=== PATIENT | male | born 1970 | race Caucasian/White ===

== ENCOUNTER 2018-04-04 12:05 | Inpatient (IN) | payer OTHER ==
--- NOTE | 2018-04-04 12:16 | PDOC ---
History of Present Illness - General Chief Complaint: Shortness of Breath Stated Complaint: SOB Time Seen by Provider: 04/04/18 12:15 - History of Present Illness Initial Comments: 04/04/18 13:48 48 yo morbidly obese Male w a hx of HTN on amlodipine, childhood asthma, and gout is here with severe SOB and difficulty breathing. His SOB began last night and has progressively worsened to the point where he can't lie flat. He has been experiencing SOB for the past week on and off but it was never as bad as it was last night or today. He reports poor medication compliance and he is not sure what meds he takes for hypertension. He has a 6 week hx of on and off vague R sided lower back/flank pain. He is not currently experiencing the pain. He denies having any current chest pain, back pain, headache, visionary changes , floaters, abdominal pain, or flank pain. He denies any recent fevers, chills, or infections. He denies dysuria, frequency , urgency, nausea, vomiting, diaphoresis, constipation, or diarrhea. Patient denies having a cough, recent travel, recent surgeries, or a hx of cancer. 04/04/18 14:03 04/04/18 14:11 04/04/18 15:33 Past History - Past Medical History Allergies/Adverse Reactions: Allergies Allergy/AdvReac Type Severity Reaction Status Date / Time No Known Allergies Allergy Verified 04/04/18 12:10 COPD: No HTN: Yes - Suicide/Smoking/Psychosocial Hx Smoking History: Never smoked Review of Systems - Review of Systems Comments:: 04/04/18 13:53 CONSTITUTIONAL: Absent: fever, chills, diaphoresis, generalized weakness, malaise, loss of appetite HEENT: Present: throat pain Absent: rhinorrhea, nasal congestion, throat swelling, difficulty swallowing, mouth swelling, ear pain, eye pain, visual Changes CARDIOVASCULAR: Absent: chest pain, syncope, palpitations, irregular heart rate, lightheadedness , peripheral edema RESPIRATORY: Positive: Shortness of breath, orthopnea Absent: cough, dyspnea with exertion, wheezing, stridor, hemoptysis GASTROINTESTINAL: Absent: abdominal pain, abdominal distension, nausea, vomiting, diarrhea, constipation, melena, hematochezia GENITOURINARY: Positive: Flank pain Absent: dysuria, frequency, urgency, hesitancy, hematuria, genital pain MUSCULOSKELETAL: Absent: myalgia, arthralgia, joint swelling SKIN: Absent: rash, itching, pallor HEMATOLOGIC/IMMUNOLOGIC: Absent: easy bleeding, easy bruising, lymphadenopathy, frequent infections ENDOCRINE: Absent: unexplained weight gain, unexplained weight loss, heat intolerance, cold intolerance NEUROLOGIC: Absent: headache, focal weakness or paresthesias, dizziness, unsteady gait, seizure, mental status changes, bladder or bowel incontinence PSYCHIATRIC: Absent: anxiety, depression, suicidal or homicidal ideation, hallucinations. 04/04/18 14:08 04/04/18 14:12 *Physical Exam - Vital Signs Last Vital Signs Temp Pulse Resp BP Pulse Ox 98.4 F 84 20 205/129 94 L 04/04/18 12:06 04/04/18 12:06 04/04/18 12:06 04/04/18 12:06 04/04/18 12:06 - Physical Exam Comments: 04/04/18 14:12 GENERAL: The patient is in moderate distress. Well developed, well nourished. Awake and alert. HEENT: Posterior oropharynx is mildly erythematous. Normocephalic, atraumatic. PERRLA, EOMI. No conjunctival pallor. Sclera are non- icteric. Moist mucous membranes. NECK: Supple. Full ROM. No JVD. No thyromegaly. No lymphadenopathy. CARDIOVASCULAR: Regular rate and rhythm. No murmurs, rubs, or gallops. Distal pulses are 2+ and symmetric. PULMONARY: Clear evidence of respiratory distress. Lungs clear to auscultation bilaterally. No wheezing, rales or rhonchi. He is not using accessory muscles. ABDOMINAL: Soft. Non-tender. Non-distended. No rebound or guarding. No organomegaly. Normoactive bowel sounds. MUSCULOSKELETAL Normal range of motion at all joints. No bony deformities or tenderness. No CVA tenderness. EXTREMITIES: No cyanosis. No clubbing. No edema. No calf tenderness. SKIN: Warm and dry. Normal capillary refill. No rashes. No jaundice. NEUROLOGICAL: Alert, awake, appropriate. Cranial nerves 2-12 intact. No deficits to light touch in face, upper extremities and lower extremities. No motor deficits in the in face, upper extremities and lower extremities. Normal speech. Gait is normal without ataxia. PSYCHIATRIC: Cooperative. Good eye contact. Appropriate mood and affect. ED Treatment Course - LABORATORY CBC & Chemistry Diagram: 04/04/18 13:44 04/04/18 14:23 Medical Decision Making - Medical Decision Making 04/04/18 14:18 48 yo M w a hx of HTN on amlodipine and another unspecified med, childhood asthma, and gout is here with severe SOB and difficulty breathing, elevated blood pressure systolic 210, diastolic 130, RR -33. Differential includes but not limited to: Hypertensive emergency/urgency, Heart failure, Dissection, PE, medication noncompliance, asthma exacerbation, ACS, CHAPO /OHS, infection. Given high blood pressure + SOB this could be an end organ failure from hypertensive emergency. Will give lebatalol to lower BP. Given remote hx of childhood asthma will give a breathing treatment. Plan: Labs, urine, CXR, Ekg, duoneb, lebatalol, continuous cardiac monitoring, oxygen, re-assess. CXR showed bilateral interstitial infiltrates which could be pulmonary edema or atypical PNA. Labs came back with a significant BNP of 8183. Given the CXR and elevated BNP this is likely Heart failure - possibly caused by uncontrolled hypertension. Patient is still in significant respiratory distress after labetalol and Duoneb. Plan is to give patient nitroglycerin and lasix to start treating his CHF. If he gets worse or desaturates will have a low threshhold to start Bi-Pap. Patient will be admitted to Tele. 04/04/18 15:36 04/04/18 15:45 04/04/18 16:11 *DC/Admit/Observation/Transfer Diagnosis at time of Disposition: CHF (congestive heart failure) - Discharge Dispostion Condition at time of disposition: Guarded Decision to Admit order: Yes - Referrals - Patient Instructions - Post Discharge Activity
--- NOTE | 2018-04-04 12:36 | PDOC ---
Attending Attestation - Resident Resident Name: Alexis Hopkins - ED Attending Attestation I have performed the following: I have examined & evaluated the patient, The case was reviewed & discussed with the resident, I agree w/resident's findings & plan, Exceptions are as noted - HPI HPI: 04/04/18 12:35 48y M hx of HTN presenting with worsening sob worse with lying down. no associated headache, back pain, cp, abd pain, fever, cough, diaphoresis, palpitations, lightheadeness. Pt notes he occasionally has symptoms like this but rseolves spontaneously and never saught medical care. Pt denies any recent VÁSQUEZ, cp on exertion. on exam pt in no distresss pt noted to be hypoxic to low 90s on RA mildly tachypneic - lungs clear to ascultation no LE edema abd sof tnontender card: no murmers, no jvd ddx: chf, pna, acs, hypertensive emergency, ?pulm htn - Physicial Exam PE: 04/08/18 09:25 see above - Medical Decision Making pts cxr is suggestive of CHF in light of htn, suspect htn emeergency will admit pt for further mangement for controlof his pulm edema and htn will give pt lasix and antihypertnsives Heart Score/ECG Review - ECG Impressions Comment:: 04/04/18 17:01 Twelve-lead EKG was performed and reviewed by me. There is normal sinus rhythm with a normal rate. rate of86 QTc interval of 473 blood Abnormal R wave progression T wave inversion in 1 and aVL
[2018-04-04] MEDS ORDERED: LABETALOL HCL 5 MG/1 ML (100MG/20 ML VIAL) IVPUSH ONE ×2 (12:46→16:10)
[2018-04-04 13:28] LABS: VENOUS PC02 35.5 mmHg (38-52); VENOUS PH 7.43 (7.32-7.42); VENOUS PO2 34.4 mmHg (28-48)
[2018-04-04] MEDS ORDERED: LABETALOL HCL 5 MG/1 ML (200MG/40ML VIAL) IVPB ONE (13:35)
[2018-04-04] MEDS ORDERED: ALBUTEROL SO4 2.5/IPRATROPIUM 0.5 INH SOL 3 ML VIAL.NEB. NEB ONE ×2 (14:02→14:31)
[2018-04-04 14:05] LABS: EOS % 1.3 % (0-4.5); HEMATOCRIT 44.5 % (35.4-49); HEMOGLOBIN 14.6 GM/dL (11.7-16.9); LYMPH % 8.8 % (8-40); MCH 30.3 pg (25.7-33.7); MCHC 32.9 g/dl (32.0-35.9); MEAN CELL VOLUME 92.2 fl (80-96); MEAN PLT VOLUME 10.8 fl (7.5-11.1); MONO % 3.9 % (3.8-10.2); PLATELET COUNT 161 K/MM3 (134-434); RBC 4.83 M/mm3 (4.00-5.60); RDW 16.7 % (11.9-15.9); WHITE BLOOD COUNT 10.1 K/mm3 (4.0-10.0)
[2018-04-04 14:20] LABS: URINE APPEARANCE CLEAR; URINE BILIRUBIN NEGATIVE (<2.0 mg/dL); URINE COLOR YELLOW; URINE GLUCOSE (UA) NEGATIVE (NEGATIVE); URINE KETONE NEGATIVE (NEGATIVE); URINE LEUK ESTERASE NEGATIVE (NEGATIVE); URINE NITRITE NEGATIVE (NEGATIVE); URINE UROBILINOGEN NEGATIVE mg/dL (0.2-1.0)
[2018-04-04 14:29] LABS: URINE PROTEIN 2+ (NEGATIVE)
[2018-04-04 14:42] LABS: GRANULAR CASTS 5 /lpf; URINE HYALINE CAST 28 /lpf; URINE MUCUS RARE
[2018-04-04 14:59] LABS: ALK PHOS 93 U/L (45-117); ANION GAP 9 MMOL/L (8-16); BILIRUBIN,TOTAL 3.2 mg/dL (0.2-1); BLOOD UREA NITROGEN 27 mg/dL (7-18); CALCIUM 8.8 mg/dL (8.5-10.1); CHLORIDE 108 mmol/L (98-107); CO2 20 mmol/L (21-32); CREATININE 1.1 mg/dL (0.55-1.3); GLUCOSE,RANDOM 134 mg/dL (74-106); POTASSIUM 4.1 mmol/L (3.5-5.1); SGOT/AST 21 U/L (15-37); SGPT/ALT 32 U/L (13-61); SODIUM 137 mmol/L (136-145); TOT PROT 7.2 g/dl (6.4-8.2)
[2018-04-04 15:05] LABS: N-TERMINAL BNP 8183.4 pg/ml (5-125)
[2018-04-04] MEDS ORDERED: NITROGLYCERIN SUBLINGUAL 1/150 0.4 MG TAB SL ONE (15:17)
[2018-04-04] MEDS ORDERED: NITROGLYCERIN SUBLINGUAL 1/150 0.4 MG TAB ONE (15:27)
[2018-04-04] MEDS ORDERED: FUROSEMIDE 40 MG/4 ML INJECTABLE VIAL IVPUSH ONE ×2 (15:58→16:07)
--- NOTE | 2018-04-04 16:08 | HP ---
CHIEF COMPLAINT: shorntess of breath PCP: HISTORY OF PRESENT ILLNESS: Patient is a 48 year old male with a past medical history of hypertension, ETOH abuse, gout and childhood asthma. He comes to the ED today with complaints of difficulty breathing specifically when he lays down flat. The shortness of breath started about 1 week ago and worsened, however, got worse today prompting and ED visit. He is unable to ambulate without experiencing shortness of breath, cannot lay flat. He states he is on Norvasc 10mg and takes it intermittently. He is on another blood pressure "purple" pill but does not take it anymore. he takes his blood pressure at home with an electronic monitor and it is usually high in the 190s systolic. He denies chest pain, fevers, chills, or infections. Patient denies having a cough or recent travel. Wells score 0: no malignancy, no hemoptysis, no hx of of dvt or PE, denies prolonged immobilization. His heart rate is not elevated nor has any lower ext edema. ER course was notable for: (1) hypertensive emergency (2) chest xray, congestion, cardiomegaly, possible pna (3) bnp 8000 (4) lasix 40mg in ED (5) nitro, labetolol IV, Recent Travel: PAST MEDICAL HISTORY: PAST SURGICAL HISTORY: Social History: Smoking: denies Alcohol: drank 10 beers per night, but states last drink was march 07, none since Drugs: denies Family History: Allergies No Known Allergies Allergy (Verified 04/04/18 12:10) PHYSICAL EXAMINATION Vital Signs - 24 hr 04/04/18 04/04/18 04/04/18 12:05 12:06 12:10 Temperature 98.4 F Pulse Rate 84 Pulse Rate [ Apical] Respiratory 20 Rate Blood Pressure 205/129 Blood Pressure [Right Arm] O2 Sat by Pulse 98 94 L 98 Oximetry (%) 04/04/18 04/04/18 04/04/18 13:55 14:20 16:05 Temperature 98.1 F Pulse Rate Pulse Rate [ 85 85 85 Apical] Respiratory 32 H 20 34 H Rate Blood Pressure Blood Pressure 191/135 199/144 193/133 [Right Arm] O2 Sat by Pulse 98 98 95 Oximetry (%) GENERAL: Awake, alert, and fully oriented, in no acute distress. HEAD: Normal with no signs of trauma. EYES: Pupils equal, round and reactive to light, extraocular movements intact, sclera anicteric, conjunctiva clear. No lid lag. EARS, NOSE, THROAT: Ears normal, nares patent, oropharynx clear without exudates. Moist mucous membranes. NECK: Normal range of motion, supple without lymphadenopathy, JVD, or masses. LUNGS: Breath sounds equal, clear to auscultation bilaterally, + accessory muscle use. HEART: Regular rate and rhythm, normal S1 and S2 without murmur, rub or gallop. ABDOMEN: Soft, nontender, not distended, normoactive bowel sounds, no guarding, no rebound, no masses. No hepatomegaly or splenomegaly. MUSCULOSKELETAL: Normal range of motion at all joints. No bony deformities or tenderness. No CVA tenderness. UPPER EXTREMITIES: 2+ pulses, warm, well-perfused. No cyanosis. No clubbing. No peripheral edema. LOWER EXTREMITIES: 2+ pulses, warm, well-perfused. No calf tenderness. No peripheral edema. NEUROLOGICAL: Cranial nerves II-XII intact. Normal speech. Normal gait. PSYCHIATRIC: Cooperative. Good eye contact. Appropriate mood and affect. SKIN: Warm, dry, normal turgor, no rashes or lesions noted, normal capillary refill. Laboratory Results - last 24 hr 04/04/18 04/04/18 04/04/18 13:00 13:00 13:20 WBC RBC Hgb Hct MCV MCH MCHC RDW Plt Count No Result Required. MPV Absolute Neuts (auto) Neutrophils % Lymphocytes % Monocytes % Eosinophils % Basophils % Nucleated RBC % VBG pH POC VBG pCO2 POC VBG pO2 Mixed VBG HCO3 Sodium Cancelled Potassium Cancelled Chloride Cancelled Carbon Dioxide Cancelled Anion Gap Cancelled BUN Cancelled Creatinine Cancelled Creat Clearance w eGFR Cancelled Random Glucose Cancelled Lactic Acid Calcium Cancelled Total Bilirubin Cancelled AST Cancelled ALT Cancelled Alkaline Phosphatase Cancelled Creatine Kinase Cancelled Troponin I Cancelled B-Natriuretic Peptide Cancelled Total Protein Cancelled Albumin Cancelled Urine Color Urine Appearance Urine pH Ur Specific Taylor Urine Protein Urine Glucose (UA) Urine Ketones Urine Blood Urine Nitrite Urine Bilirubin Urine Urobilinogen Ur Leukocyte Esterase Urine WBC (Auto) Urine RBC (Auto) Hyaline Casts Granular Casts Urine Mucus 04/04/18 04/04/18 04/04/18 13:20 13:31 13:44 WBC 10.1 H RBC 4.83 Hgb 14.6 Hct 44.5 MCV 92.2 MCH 30.3 MCHC 32.9 RDW 16.7 H Plt Count 161 D MPV 10.8 D Absolute Neuts (auto) 8.6 H Neutrophils % 85.0 H Lymphocytes % 8.8 Monocytes % 3.9 Eosinophils % 1.3 Basophils % 1.0 Nucleated RBC % 0 VBG pH 7.43 H POC VBG pCO2 35.5 L POC VBG pO2 34.4 Mixed VBG HCO3 23.1 Sodium Potassium Chloride Carbon Dioxide Anion Gap BUN Creatinine Creat Clearance w eGFR Random Glucose Lactic Acid 1.4 Calcium Total Bilirubin AST ALT Alkaline Phosphatase Creatine Kinase Troponin I B-Natriuretic Peptide Total Protein Albumin Urine Color Urine Appearance Urine pH Ur Specific Taylor Urine Protein Urine Glucose (UA) Urine Ketones Urine Blood Urine Nitrite Urine Bilirubin Urine Urobilinogen Ur Leukocyte Esterase Urine WBC (Auto) Urine RBC (Auto) Hyaline Casts Granular Casts Urine Mucus 04/04/18 04/04/18 04/04/18 13:51 14:00 14:23 WBC RBC Hgb Hct MCV MCH MCHC RDW Plt Count MPV Absolute Neuts (auto) Neutrophils % Lymphocytes % Monocytes % Eosinophils % Basophils % Nucleated RBC % VBG pH POC VBG pCO2 POC VBG pO2 Mixed VBG HCO3 Sodium 137 Potassium 4.1 Chloride 108 H Carbon Dioxide 20 L Anion Gap 9 BUN 27 H Creatinine 1.1 Creat Clearance w eGFR > 60 Random Glucose 134 H Lactic Acid Calcium 8.8 Total Bilirubin 3.2 H AST 21 ALT 32 Alkaline Phosphatase 93 Creatine Kinase 121 Troponin I 0.04 B-Natriuretic Peptide 8183.4 H Total Protein 7.2 Albumin 4.0 Urine Color Yellow Urine Appearance Clear Urine pH 5.0 Ur Specific Taylor 1.018 Urine Protein 2+ H Urine Glucose (UA) Negative Urine Ketones Negative Urine Blood Negative Urine Nitrite Negative Urine Bilirubin Negative Urine Urobilinogen Negative Ur Leukocyte Esterase Negative Urine WBC (Auto) 1 Urine RBC (Auto) <1 Hyaline Casts 28 Granular Casts 5 Urine Mucus Rare ASSESSMENT/PLAN: Patient is a 48 year old male with a past medical history of hypertension, ETOH abuse and childhood asthma. He comes to the ED today with complaints of difficulty breathing specifically when he lays down flat. ED course: labs: bnp 8000 meds: given nitro, labetolol IV, Wells score 0: no malignancy, no hemoptysis, no hx of of dvt or PE, denies prolonged immobilization. his heart rate is not elevated nor has any lower ext edema. ekg: EKG sinus, LVH, nonspecific T wave changes, LA enlargement echo: LV function severely reduced Hypertensive urgency: Hypertensive urgency/ Shortness of breath in the setting of uncontrolled blood pressure and BNP 8k. BP at home reported to be in the 190s systolic. Lowering his BP slowly is the goal. On 2 liters of nasal cannula for shortness of breath. Patient denies headache. denies chest pain. Will trend troponins. Monitor on tele with close monitoring of BP q4. Will order lipids, tsh and [id number] labs. Pulm: Shortness of breath. secondary to fluid overload. chest xray with pulmonary edema, possible interstitial pna. Pulm consult. Will order duonebs for relief of shortness of breath. On Lasix. on 2 liters of nasal cannula to maintain oxygen stable at 92% or greater. Psyche: ETOH abuse, denies current use muscular: Gout, not in any flare full code Visit type - Emergency Visit Emergency Visit: Yes ED Registration Date: 04/04/18 Care time: The patient presented to the Emergency Department on the above date and was hospitalized for further evaluation of their emergent condition. - New Patient This patient is new to me today: Yes Date on this admission: 04/04/18 - Critical Care Critical Care patient: No Hospitalist Screening - Colonoscopy Questionnaire Colonoscopy Questionnaire: Colonoscopy Questionnaire - Patient: 50 - 75 years old and never had a screening colonoscopy: Unknown History of colon or rectal polyps, or CA: Unknown History of IBD, Crohn's disease or UC: Unknown History of abdominal radiation therapy as a child: Unknown - Relative: 1 with colon or rectal CA, or polyps at age 60 or younger: Unknown Colon or rectal CA diagnosed at age 45 or younger: Unknown Multiple relatives with colon or rectal CA: Unknown - Outcome: Screening Result: Negative Screen
--- NOTE | 2018-04-04 16:15 | ECHO ---
Name: GENARO PATTERSON Exam:Adult Echocardiogram Study Date: 04/04/2018 03:31 PM Age: 48 yrs Reason For Study: CHF Height: 66 in Weight: 275 lb BSA: 2.3 m2 MMode/2D Measurements & Calculations IVSd: 1.1 cm Ao root diam: 2.7 cm LVIDd: 5.7 cm LA dimension: 4.6 cm LVIDs: 4.9 cm LVPWd: 1.0 cm EDV(Teich): 157.3 ml TAPSE: 1.8 cm ESV(Teich): 114.0 ml RV S Damion: 6.2 cm/sec Doppler Measurements & Calculations MV E max damion: 99.7 cm/sec Ao V2 max: 79.6 cm/sec MV A max damion: 34.1 cm/sec Ao max P.5 mmHg MV E/A: 2.9 MV dec time: 0.13 sec LV V1 max P.58 mmHg MR max damion: 275.5 cm/sec LV V1 max: 38.1 cm/sec MR max P.4 mmHg TR max damion: 190.0 cm/sec PI end-d damion: 63.0 cm/sec TR max P.4 mmHg Med Peak E' Damion: 2.5 cm/sec Med E/e': 39.8 Lat Peak E' Damion: 6.4 cm/sec Lat E/e': 15.5 Left Ventricle Left ventricular systolic function is severely reduced. Ejection Fraction = 20-25%. Right Ventricle The right ventricle is grossly normal size. The right ventricular systolic function is grossly normal . Atria The left atrium is moderately dilated. Mitral Valve The mitral valve is grossly normal. There is no mitral valve stenosis. There is mild mitral regurgita tion. Tricuspid Valve The tricuspid valve is not well visualized, but is grossly normal. There is mild tricuspid regurgitat ion. Aortic Valve There is mild aortic sclerosis.;. No hemodynamically significant valvular aortic stenosis. No aortic regurgitation is present. Pulmonic Valve The pulmonic valve is not well seen, but is grossly normal. Mild pulmonic valvular regurgitation. Great Vessels The aortic root is normal size. Pericardium/Pleura Trivial pericardial effusion not hemodynamically significant. Interpretation Summary Left ventricular systolic function is severely reduced. Ejection Fraction = 20-25%. The left atrium is moderately dilated. There is mild mitral regurgitation. There is mild tricuspid regurgitation. There is mild aortic sclerosis.; Trivial pericardial effusion not hemodynamically significant MD Kvng Rubio 04/04/2018 04:15 PM
--- NOTE | 2018-04-04 16:46 | CON.CARD ---
Consult Consult Specialty:: Cardiology Referred by:: Mary Reason for Consultation:: CHF - History of Present Illness Chief Complaint: shortness of breath History of Present Illness: 48M h/o HTN, gout, noncompliant with meds/doctors visits p/w dyspnea on exertion , orthopnea. Has had these symptoms since the summer for the last few months. Gets short of breath with any walking and feels better when stops and also notes when lying down. No chest bhanu. Has h/o HTN, per patient's family member BP baseline 180s-190s/120s-130s. Had been on medications at home including amlodipine, which he was not taking. In the ER noted to have congestion on CXR, BNP>8000, trop negative. Was given nitro, labetolol IV with improvement in intial BP 205/129 to 199/133. He feels better. IV lasix ordered as well, not given yet. Cr 1.1. - History Source History Provided By: Patient Limitations to Obtaining History: No Limitations - Past Medical History Cardio/Vascular: Yes: HTN - Alcohol/Substance Use Hx Alcohol Use: No - Smoking History Smoking history: Never smoked Home Medications - Allergies Allergies/Adverse Reactions: Allergies Allergy/AdvReac Type Severity Reaction Status Date / Time No Known Allergies Allergy Verified 04/04/18 12:10 Family Disease History - Family Disease History Family History: Unremarkable Review of Systems - Review of Systems Constitutional: reports: No Symptoms Eyes: reports: No Symptoms HENT: reports: No Symptoms Neck: reports: No Symptoms Cardiovascular: reports: Shortness of Breath Respiratory: reports: Orthopnea Gastrointestinal: reports: No Symptoms Genitourinary: reports: No Symptoms Musculoskeletal: reports: No Symptoms Integumentary: reports: No Symptoms Neurological: reports: No Symptoms Endocrine: reports: No Symptoms Hematology/Lymphatic: reports: No Symptoms Psychiatric: reports: No Symptoms Vital Signs: Vital Signs Temperature 98.1 F 04/04/18 16:05 Pulse Rate 85 04/04/18 16:05 Respiratory Rate 34 H 04/04/18 16:05 Blood Pressure 193/133 04/04/18 16:05 O2 Sat by Pulse Oximetry (%) 95 04/04/18 16:05 Constitutional: Yes: Well Nourished, No Distress Eyes: Yes: Conjunctiva Clear, EOM Intact HENT: Yes: Atraumatic, Normocephalic Neck: Yes: Supple, Trachea Midline Respiratory: Yes: Regular, CTA Bilaterally Gastrointestinal: Yes: Normal Bowel Sounds, Soft Renal/: Yes: WNL Cardiovascular: Yes: Regular Rate and Rhythm JVD: Yes Carotid Bruit: No Heart Sounds: Yes: S1, S2 Edema: No Peripheral Pulses WNL: Yes Peripheral Pulses: 2+ Left Doralis Pedis, 2+ Right Dorsalis Pedis Integumentary: Yes: WNL Neurological: Yes: Alert, Oriented Psychiatric: Yes: Alert, Oriented - Other Data Labs, Other Data: CBC, BMP 04/04/18 13:44 04/04/18 14:23 Troponin, BNP 04/04/18 04/04/18 13:20 14:00 Troponin I Cancelled 0.04 B-Natriuretic Peptide Cancelled 8183.4 H Troponin, BNP 04/04/18 04/04/18 13:20 14:00 Troponin I Cancelled 0.04 B-Natriuretic Peptide Cancelled 8183.4 H Assessment/Plan echo 03/2018 EF 25-30%, LV function severely reduced, mod LA dilation, mild MR, mild TR EKG sinus, LVH, nonspecific T wave changes, LA enlargement CXR: c/w congestion 48M h/o HTN, gout, noncompliant with meds/doctors visits p/w dyspnea on exertion , orthopnea, new cardiomyopathy, HTN, acute HF exacerbation Cardiomyopathy, acute systolic HF exacerbation - no prior cardiac history - likely etiology is uncontrolled HTN, check TSH, iron studies. will discuss ischemic workup as outpatient - will start ACEI, BB and uptitrate as tolerated - lasix 40mg BID IV - daily weights, monitor Cr HTN - baseline BP 180s-190s/100s-110s per patient and family member, he was not taking medications as prescribed at home - will start ACEI and BB as above for CHF and uptitrate as tolerated - given high baseline will avoid aggressive lowering of BP to avoid cerebral hypoperfusion Gout - manage per primary
[2018-04-04] MEDS: LABETALOL HCL 5 MG/1 ML (100MG/20 ML VIAL) IVPUSH PRN (17:49)
[2018-04-04] MEDS: LISINOPRIL 5 MG TABLET (FP) PO SCH (17:49)
[2018-04-04] MEDS ORDERED: ALBUTEROL SO4 2.5/IPRATROPIUM 0.5 INH SOL 3 ML VIAL.NEB. NEB PRN (18:23)
[2018-04-04] MEDS: CARVEDILOL 6.25 MG TABLET (FP) PO SCH (21:08)
[2018-04-05 06:20] LABS: BASO % 0.7 % (0-2.0); EOS % 1.1 % (0-4.5); HEMATOCRIT 41.4 % (35.4-49); HEMOGLOBIN 13.6 GM/dL (11.7-16.9); LYMPH % 11.7 % (8-40); MCH 30.2 pg (25.7-33.7); MEAN CELL VOLUME 91.6 fl (80-96); MEAN PLT VOLUME 10.8 fl (7.5-11.1); MONO % 4.4 % (3.8-10.2); NEUT % 82.1 % (42.8-82.8); PLATELET COUNT 142 K/MM3 (134-434); RBC 4.52 M/mm3 (4.00-5.60); RDW 16.5 % (11.9-15.9); WHITE BLOOD COUNT 8.9 K/mm3 (4.0-10.0)
[2018-04-05] MEDS: FUROSEMIDE 40 MG/4 ML INJECTABLE VIAL IVPUSH SCH ×2 (06:34→15:15)
[2018-04-05 07:29] LABS: ALBUMIN 3.8 g/dl (3.4-5.0); ALK PHOS 88 U/L (45-117); ANION GAP 11 MMOL/L (8-16); BILIRUBIN,TOTAL 5.1 mg/dL (0.2-1); BLOOD UREA NITROGEN 22 mg/dL (7-18); CALCIUM 8.9 mg/dL (8.5-10.1); CHLORIDE 110 mmol/L (98-107); CO2 23 mmol/L (21-32); CREATININE 0.9 mg/dL (0.55-1.3); GLUCOSE,RANDOM 89 mg/dL (74-106); MAGNESIUM 1.9 mg/dL (1.8-2.4); POTASSIUM 3.6 mmol/L (3.5-5.1); SGOT/AST 20 U/L (15-37); SGPT/ALT 28 U/L (13-61); SODIUM 144 mmol/L (136-145); TOT PROT 6.6 g/dl (6.4-8.2)
[2018-04-05 09:40] LABS: CHOLESTEROL 161 mg/dL (50-200); HDL CHOLESTEROL 23 mg/dL (40-60); TRIGLYCERIDES 122 mg/dL (0-150)
[2018-04-05] MEDS: LISINOPRIL 5 MG TABLET (FP) PO SCH (10:13)
[2018-04-05] MEDS: CARVEDILOL 6.25 MG TABLET (FP) PO SCH ×2 (10:13→21:13)
--- NOTE | 2018-04-05 10:28 | PN ---
Progress Note (short form) - Note Progress Note: cc: sob s: tele: Current Medications Albuterol/Ipratropium (Duoneb -) 1 amp NEB Q6H PRN PRN Reason: SHORTNESS OF BREATH Atorvastatin Calcium (Lipitor -) 40 mg PO HS [facility] Carvedilol (Coreg -) 6.25 mg PO BID [facility] Last Admin: 04/05/18 10:13 Dose: 6.25 mg Furosemide (Lasix Injection -) 40 mg IVPUSH BID@0600,1400 [facility] Last Admin: 04/05/18 06:34 Dose: 40 mg Labetalol HCl (Normodyne Injection -) 10 mg IVPUSH Q4H-IV PRN PRN Reason: SBP >180, DBP >110 Last Admin: 04/04/18 17:49 Dose: 10 mg Lisinopril (Prinivil) 5 mg PO DAILY [facility] Last Admin: 04/05/18 10:13 Dose: 5 mg Vital Signs Vital Signs Period Temp Pulse Resp BP Sys/Mix Pulse Ox Last 24 Hr 97.9 F-98.4 F 80-92 20-34 160-205/110-144 94-99 Constitutional: Yes: Well Nourished, No Distress Eyes: Yes: Conjunctiva Clear, EOM Intact HENT: Yes: Atraumatic, Normocephalic Neck: Yes: Supple, Trachea Midline Respiratory: Yes: Regular, CTA Bilaterally Gastrointestinal: Yes: Normal Bowel Sounds, Soft Renal/: Yes: WNL Cardiovascular: Yes: Regular Rate and Rhythm JVD: Yes Carotid Bruit: No Heart Sounds: Yes: S1, S2 Edema: No Peripheral Pulses WNL: Yes Peripheral Pulses: 2+ Left Doralis Pedis, 2+ Right Dorsalis Pedis Integumentary: Yes: WNL Neurological: Yes: Alert, Oriented Psychiatric: Yes: Alert, Oriented - Other Data Labs, Other Data: CBC, BMP 04/04/18 13:44 04/04/18 14:23 Troponin, BNP 04/04/18 04/04/18 13:20 14:00 Troponin I Cancelled 0.04 B-Natriuretic Peptide Cancelled 8183.4 H Troponin, BNP 04/04/18 04/04/18 13:20 14:00 Troponin I Cancelled 0.04 B-Natriuretic Peptide Cancelled 8183.4 H Assessment/Plan echo 03/2018 EF 25-30%, LV function severely reduced, mod LA dilation, mild MR, mild TR EKG sinus, LVH, nonspecific T wave changes, LA enlargement CXR: c/w congestion 48M h/o HTN, gout, noncompliant with meds/doctors visits p/w dyspnea on exertion , orthopnea, new cardiomyopathy, HTN, acute HF exacerbation Cardiomyopathy, acute systolic HF exacerbation - no prior cardiac history - likely etiology is uncontrolled HTN, check TSH, iron studies. will discuss ischemic workup as outpatient - started carvedilol, lisinopril; BP improved overnight, not checked since meds given this AM - increase lisinopril to 10 mg daily, cont coreg - lasix 40mg BID IV - daily standing weights, monitor Cr HTN - baseline BP 180s-190s/100s-110s per patient and family member, he was not taking medications as prescribed at home - will start ACEI and BB as above for CHF and uptitrate as tolerated as above - PRN labetalol for BP >190/110 - given high baseline will avoid aggressive lowering of BP to avoid cerebral hypoperfusion HLD - lipid panel reviewed, LDL 125, HDL 23 - start atorvastatin 40 mg daily Gout - manage per primary
--- NOTE | 2018-04-05 10:40 | PN ---
Progress Note (short form) - Note Progress Note: PULMONARY CONSULTATION DICTATED 04/05/18 IMP ACUTE SYSTOLIC CHF CARDIOMYOPATHY HYPERTENSIVE URGENCY GOUT H/O ASTHMA LIKELY OSAS ELEVATED BILIRUBIN PLAN LASIX TITRATE BP MEDS DAILY WTS SLEEP SCREEN MONITOR LYTES,BILIRUBIN F/U CHEST X-RAYS DR MURRAY Problem List - Problems (1) Hypertensive urgency Code(s): I16.0 - HYPERTENSIVE URGENCY (2) CHF (congestive heart failure) Code(s): I50.9 - HEART FAILURE, UNSPECIFIED (3) Cardiomyopathy Code(s): I42.9 - CARDIOMYOPATHY, UNSPECIFIED (4) Systolic CHF, acute Code(s): I50.21 - ACUTE SYSTOLIC (CONGESTIVE) HEART FAILURE (5) Elevated bilirubin Code(s): R17 - UNSPECIFIED JAUNDICE (6) Obesities, morbid Code(s): E66.01 - MORBID (SEVERE) OBESITY DUE TO EXCESS CALORIES (7) Dyspnea Code(s): R06.00 - DYSPNEA, UNSPECIFIED
--- NOTE | 2018-04-05 10:59 | PN ---
Physical Exam: SUBJECTIVE: Patient seen and examined at the bedside. Sitting up, tolerating room air. breathing improving. OBJECTIVE: elevted bili 3.2>5.1 - sclera jaundice states he uses chronic motrin with gout flare will order ultrasound of liver and gallbladder BP improved overnight, elevated again this morning Vital Signs Period Temp Pulse Resp BP Sys/Mix Pulse Ox Last 24 Hr 97.9 F-98.4 F 80-92 20-34 160-205/110-144 94-99 GENERAL: The patient is awake, alert, and fully oriented, in no acute distress. HEAD: Normal with no signs of trauma, + jaundiced sclera EYES: PERRL, extraocular movements intact, sclera anicteric, conjunctiva clear. No ptosis. ENT: Ears normal, nares patent, oropharynx clear without exudates, moist mucous membranes. NECK: Trachea midline, full range of motion, supple. LUNGS: Breath sounds equal, clear to auscultation bilaterally, no wheezes, no crackles, no accessory muscle use. HEART: Regular rate and rhythm, S1, S2 without murmur, rub or gallop. ABDOMEN: Soft, nontender, nondistended, normoactive bowel sounds, no guarding, no rebound, no hepatosplenomegaly, no masses. EXTREMITIES: 2+ pulses, warm, well-perfused, no edema. NEUROLOGICAL: Cranial nerves II through XII grossly intact. Normal speech, gait not observed. PSYCH: Normal mood, normal affect. SKIN: Warm, dry, normal turgor, no rashes or lesions noted Laboratory Results - last 24 hr 04/04/18 04/04/18 04/04/18 13:00 13:00 13:20 WBC RBC Hgb Hct MCV MCH MCHC RDW Plt Count No Result Required. MPV Absolute Neuts (auto) Neutrophils % Lymphocytes % Monocytes % Eosinophils % Basophils % Nucleated RBC % VBG pH POC VBG pCO2 POC VBG pO2 Mixed VBG HCO3 Sodium Cancelled Potassium Cancelled Chloride Cancelled Carbon Dioxide Cancelled Anion Gap Cancelled BUN Cancelled Creatinine Cancelled Creat Clearance w eGFR Cancelled Random Glucose Cancelled Hemoglobin A1c % Lactic Acid Calcium Cancelled Magnesium Ferritin Total Bilirubin Cancelled AST Cancelled ALT Cancelled Alkaline Phosphatase Cancelled Creatine Kinase Cancelled Troponin I Cancelled B-Natriuretic Peptide Cancelled Total Protein Cancelled Albumin Cancelled Triglycerides Cholesterol Total LDL Cholesterol HDL Cholesterol TSH Urine Color Urine Appearance Urine pH Ur Specific [place] Urine Protein Urine Glucose (UA) Urine Ketones Urine Blood Urine Nitrite Urine Bilirubin Urine Urobilinogen Ur Leukocyte Esterase Urine WBC (Auto) Urine RBC (Auto) Hyaline Casts Granular Casts Urine Mucus 04/04/18 04/04/18 04/04/18 13:20 13:31 13:44 WBC 10.1 H RBC 4.83 Hgb 14.6 Hct 44.5 MCV 92.2 MCH 30.3 MCHC 32.9 RDW 16.7 H Plt Count 161 D MPV 10.8 D Absolute Neuts (auto) 8.6 H Neutrophils % 85.0 H Lymphocytes % 8.8 Monocytes % 3.9 Eosinophils % 1.3 Basophils % 1.0 Nucleated RBC % 0 VBG pH 7.43 H POC VBG pCO2 35.5 L POC VBG pO2 34.4 Mixed VBG HCO3 23.1 Sodium Potassium Chloride Carbon Dioxide Anion Gap BUN Creatinine Creat Clearance w eGFR Random Glucose Hemoglobin A1c % Lactic Acid 1.4 Calcium Magnesium Ferritin Total Bilirubin AST ALT Alkaline Phosphatase Creatine Kinase Troponin I B-Natriuretic Peptide Total Protein Albumin Triglycerides Cholesterol Total LDL Cholesterol HDL Cholesterol TSH Urine Color Urine Appearance Urine pH Ur Specific [place] Urine Protein Urine Glucose (UA) Urine Ketones Urine Blood Urine Nitrite Urine Bilirubin Urine Urobilinogen Ur Leukocyte Esterase Urine WBC (Auto) Urine RBC (Auto) Hyaline Casts Granular Casts Urine Mucus 04/04/18 04/04/18 04/04/18 13:51 14:00 14:23 WBC RBC Hgb Hct MCV MCH MCHC RDW Plt Count MPV Absolute Neuts (auto) Neutrophils % Lymphocytes % Monocytes % Eosinophils % Basophils % Nucleated RBC % VBG pH POC VBG pCO2 POC VBG pO2 Mixed VBG HCO3 Sodium 137 Potassium 4.1 Chloride 108 H Carbon Dioxide 20 L Anion Gap 9 BUN 27 H Creatinine 1.1 Creat Clearance w eGFR > 60 Random Glucose 134 H Hemoglobin A1c % Lactic Acid Calcium 8.8 Magnesium Ferritin Total Bilirubin 3.2 H AST 21 ALT 32 Alkaline Phosphatase 93 Creatine Kinase 121 Troponin I 0.04 B-Natriuretic Peptide 8183.4 H Total Protein 7.2 Albumin 4.0 Triglycerides Cholesterol Total LDL Cholesterol HDL Cholesterol TSH Urine Color Yellow Urine Appearance Clear Urine pH 5.0 Ur Specific [place] 1.018 Urine Protein 2+ H Urine Glucose (UA) Negative Urine Ketones Negative Urine Blood Negative Urine Nitrite Negative Urine Bilirubin Negative Urine Urobilinogen Negative Ur Leukocyte Esterase Negative Urine WBC (Auto) 1 Urine RBC (Auto) <1 Hyaline Casts 28 Granular Casts 5 Urine Mucus Rare 04/04/18 04/05/18 04/05/18 19:30 05:30 05:30 WBC 8.9 RBC 4.52 Hgb 13.6 Hct 41.4 MCV 91.6 MCH 30.2 MCHC 33.0 RDW 16.5 H Plt Count 142 MPV 10.8 Absolute Neuts (auto) 7.3 Neutrophils % 82.1 Lymphocytes % 11.7 D Monocytes % 4.4 Eosinophils % 1.1 Basophils % 0.7 Nucleated RBC % 0 VBG pH POC VBG pCO2 POC VBG pO2 Mixed VBG HCO3 Sodium 144 Potassium 3.6 Chloride 110 H Carbon Dioxide 23 Anion Gap 11 BUN 22 H Creatinine 0.9 Creat Clearance w eGFR > 60 Random Glucose 89 Hemoglobin A1c % Lactic Acid Calcium 8.9 Magnesium 1.9 Ferritin 195.1 Total Bilirubin 5.1 H AST 20 ALT 28 Alkaline Phosphatase 88 Creatine Kinase 101 Troponin I 0.03 0.04 B-Natriuretic Peptide Total Protein 6.6 Albumin 3.8 Triglycerides 122 Cholesterol 161 Total LDL Cholesterol 129 H HDL Cholesterol 23 L TSH 2.77 D Urine Color Urine Appearance Urine pH Ur Specific [place] Urine Protein Urine Glucose (UA) Urine Ketones Urine Blood Urine Nitrite Urine Bilirubin Urine Urobilinogen Ur Leukocyte Esterase Urine WBC (Auto) Urine RBC (Auto) Hyaline Casts Granular Casts Urine Mucus 04/05/18 04/05/18 04/05/18 05:30 05:30 05:30 WBC RBC Hgb Hct MCV MCH MCHC RDW Plt Count MPV Absolute Neuts (auto) Neutrophils % Lymphocytes % Monocytes % Eosinophils % Basophils % Nucleated RBC % VBG pH POC VBG pCO2 POC VBG pO2 Mixed VBG HCO3 Sodium Potassium Chloride Carbon Dioxide Anion Gap BUN Creatinine Creat Clearance w eGFR Random Glucose Hemoglobin A1c % 5.1 Lactic Acid Calcium Magnesium Ferritin Total Bilirubin AST ALT Alkaline Phosphatase Creatine Kinase Cancelled Troponin I Cancelled B-Natriuretic Peptide Total Protein Albumin Triglycerides Cancelled Cholesterol Cancelled Total LDL Cholesterol Cancelled HDL Cholesterol Cancelled TSH Urine Color Urine Appearance Urine pH Ur Specific [place] Urine Protein Urine Glucose (UA) Urine Ketones Urine Blood Urine Nitrite Urine Bilirubin Urine Urobilinogen Ur Leukocyte Esterase Urine WBC (Auto) Urine RBC (Auto) Hyaline Casts Granular Casts Urine Mucus Active Medications Generic Name Dose Route Start Last Admin Trade Name Freq PRN Reason Stop Dose Admin Albuterol/Ipratropium 1 amp 04/04/18 18:23 Duoneb - NEB Q6H PRN SHORTNESS OF BREATH Atorvastatin Calcium 40 mg 04/05/18 22:00 Lipitor - PO HS SONIA Carvedilol 6.25 mg 04/04/18 22:00 04/05/18 10:13 Coreg - PO 6.25 mg BID [facility]ONIA Administration Furosemide 40 mg 04/05/18 06:00 04/05/18 06:34 Lasix Injection - IVPUSH 40 mg BID@0600,1400 SON[facility] Administration Labetalol HCl 10 mg 04/04/18 16:54 04/04/18 17:49 Normodyne Injection - IVPUSH 10 mg Q4H-IV PRN Administration SBP >180, DBP >110 Lisinopril 5 mg 04/04/18 17:00 04/05/18 10:13 Prinivil PO 5 mg DAILY [facility]ON[facility] Administration ASSESSMENT/PLAN: sheba is a 48 year old male with a past medical history of hypertension, ETOH abuse and childhood asthma. He comes to the ED today with complaints of difficulty breathing specifically when he lays down flat. ED course: labs: bnp 8000 meds: given nitro, labetolol IV, Wells score 0: no malignancy, no hemoptysis, no hx of of dvt or PE, denies prolonged immobilization. his heart rate is not elevated nor has any lower ext edema. ekg: EKG sinus, LVH, nonspecific T wave changes, LA enlargement echo: LV function severely reduced tele: NSR Hypertensive urgency: Hypertensive urgency/ Shortness of breath in the setting of uncontrolled blood pressure and BNP 8k. BP at home reported to be in the 190s systolic. Lowering his BP slowly is the goal. BP improved overnight systolic 170s, now elevated again. Continue to monitor on tele with close monitoring of BP q4. lipid panel reviewed, hmga1c stable, tsh wnl. Pulm: Shortness of breath, improved with lasix. daily weights ordered. chest xray with pulmonary edema, possible interstitial pna. Pulm consulted and following. sleep study ordered. GI: Jaundice with elevated bili Bili 3.2>5.1, sclera jaundice. abdominal u/s ordered. hepatitis panel ordered. Patient reports intermittent pain to right mid back. lft wnl. Psyche: ETOH abuse, denies current use. last drink of ~ 10 beers per night was on . none since. stopped without detoxing. muscular: Gout, not in any flare. uses motrin for relief of gout flares. full code Visit type - Emergency Visit Emergency Visit: Yes ED Registration Date: 04/04/18 Care time: The patient presented to the Emergency Department on the above date and was hospitalized for further evaluation of their emergent condition. - New Patient This patient is new to me today: No - Critical Care Critical Care patient: No - Discharge Referral Referred to [facility] No
--- NOTE | 2018-04-05 11:00 | CONS ---
DATE OF CONSULTATION: 04/05/2018 REFERRING PHYSICIAN: Dr. Sullivan The patient is a 48-year-old white male with past medical history of hypertension, gout, noncompliant with medication, remote history of asthma, not on any medication, nonsmoker, admitted to [facility] with complaint of 2-week history of increasing shortness of breath, dyspnea on exertion, orthopnea. Patient states his symptoms initially started in late February at the time he had a gout attack and was drinking a lot of fluids with some improvement. Over the past few weeks he started noticing increasing shortness of breath with exertion and inability to lay flat and pretty much unable to sleep secondary to the orthopnea. He denied any chest pain, nausea, vomiting, diaphoresis. Denied any cough or hemoptysis. Did have occasional sweats at nighttime. Denied any fevers or chills. His symptoms continued to progress, at which time he presented to the emergency room. In the ER he was noted to have bilateral pulmonary vascular congestion on chest x-ray, and BNP was greater than 8000. He was also noted to be markedly hypertensive with a blood pressure of 205/129, for which he was started on labetalol and nitroglycerin with some improvement. He was also initially given Albuterol inhaler without any improvement. He is a nonsmoker. He is currently employed as a township clerk. There is no history of recent travel. There is no history of DVT or PE in the past. He does state that he is a heavy snorer and has occasional daytime sleepiness. Of note is the patient underwent an echocardiogram, and it revealed severe LV systolic dysfunction. He was evaluated by Dr. Montero of cardiology, who felt that patient had acute decompensated systolic congestive heart failure secondary to cardiomyopathy. PAST MEDICAL HISTORY: Again includes hypertension, gout, asthma. REVIEW OF SYSTEMS: Positive orthopnea, positive dyspnea on exertion. No chest pain, no palpitations. No cough, no hemoptysis. No abdominal pain. No fevers, weight loss, or night sweats. CURRENT MEDICATIONS: Include DuoNeb, Prinivil, Normodyne, Lipitor, and Lasix. PHYSICAL EXAMINATION: General: The patient is an obese male but awake, alert, in no acute distress. Vital Signs: He is currently afebrile. Blood pressure is 190/110. Respiratory rate is 20. O2 saturation is 99% on room air. HEENT: Exam is normocephalic, atraumatic. Neck: Supple. Heart: Tachycardic, with irregular S1 and S2. Chest: Few bibasilar crackles. Abdomen: Soft. Bowel sounds are positive. Extremities: Trace bilateral lower extremity edema. LABORATORY: WBC is 8.9, hemoglobin 13.6, hematocrit 41.4, with a platelet count of 142,000. Venous blood gas with pH of 7.43, PCO2 of 35, and PO2 of 34. BUN is 22, creatinine 0.9. Bilirubin is 5.1. Liver function tests otherwise normal. BNP is 8000. Chest x-ray: Cardiomegaly with pulmonary vascular congestion. IMPRESSION: 1. Dyspnea, orthopnea secondary to acute systolic congestive heart failure due to cardiomyopathy. 2. Hypertensive urgency. 3. Gout. 4. Morbid obesity. 5. Likely obstructive sleep apnea. 6. Elevated bilirubin, etiology to be determined. 7. Remote history of asthma. PLAN: Continue Lasix, supplemental O2 as needed. Blood pressure control, titrate BP medications and order sleep screen, daily weights, followup chest x-rays, DVT prophylaxis. Will follow closely with you. PRAKASH MURRAY M.D. SERGEI/[id number] MTDD
[2018-04-05 11:43] LABS: BILIRUBIN,DIRECT 0.5 mg/dL (0.0-0.2)
--- NOTE | 2018-04-05 15:37 | EKG ---
Test Reason : Blood Pressure : / mmHG Vent. Rate : 086 BPM Atrial Rate : 086 BPM P-R Int : 178 ms QRS Dur : 096 ms QT Int : 396 ms P-R-T Axes : 055 -12 127 degrees QTc Int : 473 ms NORMAL SINUS RHYTHM POSSIBLE LEFT ATRIAL ENLARGEMENT LEFT VENTRICULAR HYPERTROPHY T WAVE ABNORMALITY, CONSIDER LATERAL ISCHEMIA PROLONGED QT ABNORMAL ECG NO PREVIOUS ECGS AVAILABLE Confirmed by MD Gavin, Ezra ([id number]) on 04/05/2018 3:37:09 PM Referred By: Confirmed By:Ezra Alonso MD
[2018-04-05] MEDS: LABETALOL HCL 5 MG/1 ML (100MG/20 ML VIAL) IVPUSH PRN (17:52)
[2018-04-05] MEDS ORDERED: LISINOPRIL 5 MG TABLET (FP) PO ONE (18:29)
[2018-04-05] MEDS: ASPIRIN COATED 81 MG TABLET.EC PO SCH (18:45)
[2018-04-05] MEDS: ATORVASTATIN CA 40 MG TABLET (FP) PO SCH (21:13)
[2018-04-06] MEDS: LABETALOL HCL 5 MG/1 ML (100MG/20 ML VIAL) IVPUSH PRN ×2 (01:15→08:41)
[2018-04-06] MEDS: FUROSEMIDE 40 MG/4 ML INJECTABLE VIAL IVPUSH SCH ×2 (06:06→14:37)
[2018-04-06 06:18] LABS: BASO % 0.8 % (0-2.0); EOS % 2.2 % (0-4.5); HEMATOCRIT 40.2 % (35.4-49); HEMOGLOBIN 13.4 GM/dL (11.7-16.9); LYMPH % 17.9 % (8-40); MCH 30.6 pg (25.7-33.7); MCHC 33.3 g/dl (32.0-35.9); MEAN CELL VOLUME 91.8 fl (80-96); MEAN PLT VOLUME 10.8 fl (7.5-11.1); MONO % 5.6 % (3.8-10.2); NEUT % 73.5 % (42.8-82.8); PLATELET COUNT 138 K/MM3 (134-434); RBC 4.38 M/mm3 (4.00-5.60); RDW 16.8 % (11.9-15.9); WHITE BLOOD COUNT 7.3 K/mm3 (4.0-10.0)
[2018-04-06 06:46] LABS: SERUM IRON SATURATION 22 % (15-55); TOTAL IRON BINDING CAPACITY 326 ug/dL (250-450); UIBC 254 ug/dL (111-343)
[2018-04-06 06:46] LABS: HBSAG SCREEN Negative (Negative); HEP B CORE AB, TOT Negative (Negative)
[2018-04-06 07:00] LABS: ALBUMIN 3.4 g/dl (3.4-5.0); ALK PHOS 86 U/L (45-117); ANION GAP 7 MMOL/L (8-16); BILIRUBIN,TOTAL 6.7 mg/dL (0.2-1); BLOOD UREA NITROGEN 20 mg/dL (7-18); CALCIUM 8.6 mg/dL (8.5-10.1); CHLORIDE 107 mmol/L (98-107); CO2 27 mmol/L (21-32); GLUCOSE,RANDOM 78 mg/dL (74-106); MAGNESIUM 2.2 mg/dL (1.8-2.4); POTASSIUM 3.3 mmol/L (3.5-5.1); SGOT/AST 17 U/L (15-37); SGPT/ALT 24 U/L (13-61); SODIUM 142 mmol/L (136-145); TOT PROT 6.5 g/dl (6.4-8.2)
[2018-04-06] MEDS ORDERED: POTASSIUM CHLORIDE TABS 20 MEQ TABLET.ER (FP) PO ONE (07:39)
[2018-04-06] MEDS: CARVEDILOL 6.25 MG TABLET (FP) PO SCH (09:07)
[2018-04-06] MEDS: ASPIRIN COATED 81 MG TABLET.EC PO SCH (09:08)
[2018-04-06] MEDS ORDERED: LISINOPRIL 10 MG TABLET (FP) PO SCH (10:00)
--- NOTE | 2018-04-06 10:15 | PN ---
Progress Note, Physician History of Present Illness: pulmonary alert,feeling better,less dyspneic. sleep screen AHI 67.1,+ severe osas. pt remains hypertensive. - Current Medication List Current Medications: Active Medications Albuterol/Ipratropium (Duoneb -) 1 amp NEB Q6H PRN PRN Reason: SHORTNESS OF BREATH Aspirin (Ecotrin -) 81 mg PO DAILY [facility] Last Admin: 04/06/18 09:08 Dose: 81 mg Atorvastatin Calcium (Lipitor -) 40 mg PO HS [facility] Last Admin: 04/05/18 21:13 Dose: 40 mg Carvedilol (Coreg -) 6.25 mg PO BID [facility] Last Admin: 04/06/18 09:07 Dose: 6.25 mg Furosemide (Lasix Injection -) 40 mg IVPUSH BID@0600,1400 [facility] Last Admin: 04/06/18 06:06 Dose: 40 mg Labetalol HCl (Normodyne Injection -) 10 mg IVPUSH Q4H-IV PRN PRN Reason: SBP >180, DBP >110 Last Admin: 04/06/18 08:41 Dose: 10 mg Lisinopril (Prinivil) 10 mg PO DAILY [facility] Last Admin: 04/06/18 09:07 Dose: 10 mg - Objective Vital Signs: Vital Signs Temperature 98.1 F 04/06/18 08:51 Pulse Rate 84 04/06/18 08:51 Respiratory Rate 22 H 04/06/18 08:51 Blood Pressure 188/108 04/06/18 08:51 O2 Sat by Pulse Oximetry (%) 97 04/06/18 08:48 Constitutional: Yes: Well Nourished, Calm Eyes: Yes: WNL HENT: Yes: WNL Neck: Yes: WNL Cardiovascular: Yes: Regular Rate and Rhythm, S1, S2 Respiratory: Yes: Diminished Gastrointestinal: Yes: Normal Bowel Sounds, Soft Extremities: Yes: WNL Edema: Yes Labs: CBC, BMP 04/06/18 05:03 04/06/18 05:03 Laboratory Tests 04/06/18 05:03 Total Bilirubin 6.7 H Problem List - Problems (1) Hypertensive urgency Code(s): I16.0 - HYPERTENSIVE URGENCY (2) CHF (congestive heart failure) Code(s): I50.9 - HEART FAILURE, UNSPECIFIED (3) Cardiomyopathy Code(s): I42.9 - CARDIOMYOPATHY, UNSPECIFIED (4) Systolic CHF, acute Code(s): I50.21 - ACUTE SYSTOLIC (CONGESTIVE) HEART FAILURE (5) Elevated bilirubin Code(s): R17 - UNSPECIFIED JAUNDICE (6) Obesities, morbid Code(s): E66.01 - MORBID (SEVERE) OBESITY DUE TO EXCESS CALORIES (7) Dyspnea Code(s): R06.00 - DYSPNEA, UNSPECIFIED Assessment/Plan IMP ACUTE SYSTOLIC CHF CARDIOMYOPATHY HYPERTENSIVE URGENCY GOUT H/O ASTHMA SEVERE OSAS ON SLEEP SCREEN ELEVATED BILIRUBIN PLAN LASIX TITRATE BP MEDS DAILY WTS MONITOR LYTES,BILIRUBIN F/U CHEST X-RAYS FORMAL SLEEP STUDIES OUTPATIENT DR MURRAY Problem List - Problems (1) Hypertensive urgency Code(s): I16.0 - HYPERTENSIVE URGENCY (2) CHF (congestive heart failure) Code(s): I50.9 - HEART FAILURE, UNSPECIFIED (3) Cardiomyopathy Code(s): I42.9 - CARDIOMYOPATHY, UNSPECIFIED (4) Systolic CHF, acute Code(s): I50.21 - ACUTE SYSTOLIC (CONGESTIVE) HEART FAILURE (5) Elevated bilirubin Code(s): R17 - UNSPECIFIED JAUNDICE (6) Obesities, morbid Code(s): E66.01 - MORBID (SEVERE) OBESITY DUE TO EXCESS CALORIES (7) Dyspnea Code(s): R06.00 - DYSPNEA, UNSPECIFIED
--- NOTE | 2018-04-06 10:27 | PN ---
Progress Note (short form) - Note Progress Note: cc: sob s: shortness of breath improving. can lie more flat, walks to bathroom without dyspnea. no chest pain, palps, edema tele: sinus, occ PVC, brief SVT Current Medications Albuterol/Ipratropium (Duoneb -) 1 amp NEB Q6H PRN PRN Reason: SHORTNESS OF BREATH Aspirin (Ecotrin -) 81 mg PO DAILY [facility] Last Admin: 04/06/18 09:08 Dose: 81 mg Atorvastatin Calcium (Lipitor -) 40 mg PO HS [facility] Last Admin: 04/05/18 21:13 Dose: 40 mg Carvedilol (Coreg -) 6.25 mg PO BID [facility] Last Admin: 04/06/18 09:07 Dose: 6.25 mg Furosemide (Lasix Injection -) 40 mg IVPUSH BID@0600,1400 [facility] Last Admin: 04/06/18 06:06 Dose: 40 mg Labetalol HCl (Normodyne Injection -) 10 mg IVPUSH Q4H-IV PRN PRN Reason: SBP >180, DBP >110 Last Admin: 04/06/18 08:41 Dose: 10 mg Lisinopril (Prinivil) 10 mg PO DAILY [facility] Last Admin: 04/06/18 09:07 Dose: 10 mg Vital Signs Vital Signs Period Temp Pulse Resp BP Sys/Mix Pulse Ox Last 24 Hr 97.8 F-98.3 F 80-95 20-22 163-201/83-117 95-97 Constitutional: Yes: Well Nourished, No Distress Eyes: Yes: Conjunctiva Clear, EOM Intact HENT: Yes: Atraumatic, Normocephalic Neck: Yes: Supple, Trachea Midline Respiratory: Yes: Regular, CTA Bilaterally Gastrointestinal: Yes: Normal Bowel Sounds, Soft Renal/: Yes: WNL Cardiovascular: Yes: Regular Rate and Rhythm JVD: Yes Carotid Bruit: No Heart Sounds: Yes: S1, S2 Edema: No Peripheral Pulses WNL: Yes Peripheral Pulses: 2+ Left Doralis Pedis, 2+ Right Dorsalis Pedis Integumentary: Yes: WNL Neurological: Yes: Alert, Oriented Psychiatric: Yes: Alert, Oriented Assessment/Plan echo 03/2018 EF 25-30%, LV function severely reduced, mod LA dilation, mild MR, mild TR EKG sinus, LVH, nonspecific T wave changes, LA enlargement CXR: c/w congestion 48M h/o HTN, gout, noncompliant with meds/doctors visits p/w dyspnea on exertion , orthopnea, new cardiomyopathy, HTN, acute HF exacerbation Cardiomyopathy, acute systolic HF exacerbation - no prior cardiac history - likely etiology is uncontrolled HTN, will discuss ischemic workup as outpatient - started carvedilol, lisinopril; uptitrating - increase lisinopril to 20 mg daily (additional 10 mg dose this afternoon), increase coreg to 12.5 mg BID start with PM dose - lasix 40mg BID IV, continue - daily standing weights, monitor Cr HTN - baseline BP 180s-190s/100s-110s per patient and family member, he was not taking medications as prescribed at home - will start ACEI and BB as above for CHF and uptitrate as tolerated as above - PRN labetalol for BP >190/110 - given high baseline will avoid aggressive lowering of BP to avoid cerebral hypoperfusion HLD - lipid panel reviewed, LDL 125, HDL 23 - start atorvastatin 40 mg daily Gout - manage per primary
--- NOTE | 2018-04-06 14:35 | PN ---
Physical Exam: SUBJECTIVE: Patient seen and examined at the bedside. Feels well, denies abdominal pain or chest pain. Tolerating room air. OBJECTIVE: elevted bili 3.2>6 - sclera jaundice states he uses chronic motrin with gout flare ultrasound of liver and gallbladder without acute pathology bp improving, coreq and lisinopril increased Vital Signs Period Temp Pulse Resp BP Sys/Mix Pulse Ox Last 24 Hr 97.8 F-98.3 F 79-95 20-22 163-201/83-115 95-97 GENERAL: The patient is awake, alert, and fully oriented, in no acute distress. HEAD: Normal with no signs of trauma, + jaundiced sclera EYES: PERRL, extraocular movements intact, sclera anicteric, conjunctiva clear. No ptosis. ENT: Ears normal, nares patent, oropharynx clear without exudates, moist mucous membranes. NECK: Trachea midline, full range of motion, supple. LUNGS: Breath sounds equal, clear to auscultation bilaterally, no wheezes, no crackles, no accessory muscle use. HEART: Regular rate and rhythm, S1, S2 without murmur, rub or gallop. ABDOMEN: Soft, nontender, nondistended, normoactive bowel sounds, no guarding, no rebound, no hepatosplenomegaly, no masses. EXTREMITIES: 2+ pulses, warm, well-perfused, no edema. NEUROLOGICAL: Cranial nerves II through XII grossly intact. Normal speech, gait not observed. PSYCH: Normal mood, normal affect. SKIN: Warm, dry, normal turgor, no rashes or lesions noted Laboratory Results - last 24 hr 04/05/18 04/05/18 04/06/18 05:30 11:10 05:03 WBC 7.3 RBC 4.38 Hgb 13.4 Hct 40.2 MCV 91.8 MCH 30.6 MCHC 33.3 RDW 16.8 H Plt Count 138 MPV 10.8 Absolute Neuts (auto) 5.4 Neutrophils % 73.5 Lymphocytes % 17.9 D Monocytes % 5.6 Eosinophils % 2.2 D Basophils % 0.8 Nucleated RBC % 0 Sodium Potassium Chloride Carbon Dioxide Anion Gap BUN Creatinine Creat Clearance w eGFR Random Glucose Calcium Magnesium Iron 72 TIBC 326 Iron Saturation 22 Total Bilirubin AST ALT Alkaline Phosphatase Total Protein Albumin Hepatitis A Ab Total Negative Hep Bs Antigen Negative Hep Bs Antibody Non reactive Hep B Core Total Ab Negative 04/06/18 05:03 WBC RBC Hgb Hct MCV MCH MCHC RDW Plt Count MPV Absolute Neuts (auto) Neutrophils % Lymphocytes % Monocytes % Eosinophils % Basophils % Nucleated RBC % Sodium 142 Potassium 3.3 L Chloride 107 Carbon Dioxide 27 Anion Gap 7 L BUN 20 H Creatinine 1.0 Creat Clearance w eGFR > 60 Random Glucose 78 Calcium 8.6 Magnesium 2.2 Iron TIBC Iron Saturation Total Bilirubin 6.7 H AST 17 ALT 24 Alkaline Phosphatase 86 Total Protein 6.5 Albumin 3.4 Hepatitis A Ab Total Hep Bs Antigen Hep Bs Antibody Hep B Core Total Ab Active Medications Generic Name Dose Route Start Last Admin Trade Name Freq PRN Reason Stop Dose Admin Albuterol/Ipratropium 1 amp 04/04/18 18:23 Duoneb - NEB Q6H PRN SHORTNESS OF BREATH Aspirin 81 mg 04/05/18 18:45 04/06/18 09:08 Ecotrin - PO 81 mg DAILY SONIA Administration Atorvastatin Calcium 40 mg 04/05/18 22:00 04/05/18 21:13 Lipitor - PO 40 mg HS SONIA Administration Carvedilol 12.5 mg 04/06/18 22:00 Coreg - PO BID SONIA Furosemide 40 mg 04/05/18 06:00 04/06/18 06:06 Lasix Injection - IVPUSH 40 mg BID@0600,1400 SONIA Administration Labetalol HCl 10 mg 04/04/18 16:54 04/06/18 08:41 Normodyne Injection - IVPUSH 10 mg Q4H-IV PRN Administration SBP >180, DBP >110 Lisinopril 20 mg 04/07/18 10:00 Prinivil PO DAILY SONIA Lisinopril 10 mg 04/06/18 16:00 Prinivil PO 04/06/18 16:01 ONCE ONE ASSESSMENT/PLAN: Patient is a 48 year old male with a past medical history of hypertension, ETOH abuse and childhood asthma. He comes to the ED today with complaints of difficulty breathing specifically when he lays down flat. Card: Hypertensive urgency/ Shortness of breath in the setting of uncontrolled blood pressure and BNP 8K. BP at home reported to be in the 190s systolic. BP here remains elevated. Coreq increased to 12.5bid, lisinopril 20mg daily by cardiology. On lasix 40mg bid for volume overload, will add potassium bid for hypokalemia. Lowering his BP slowly is the goal. Continue to monitor on tele with close monitoring of BP q4. lipid panel reviewed, hmga1c stable, tsh wnl. Pulm: Shortness of breath, improved with lasix. daily weights ordered. chest xray with pulmonary edema, possible interstitial pna. Pulm consulted and following. sleep study ordered. GI: Jaundice with elevated bili Bili 3.2>6, sclera jaundice. abdominal u/s with no acute pathology. hepatitis panel ordered. Patient reports intermittent pain to right mid back. lft wnl. Psyche: ETOH abuse, denies current use. last drink of ~ 10 beers per night was on . none since. stopped without detoxing. muscular: Gout, not in any flare. uses motrin for relief of gout flares. full code Visit type - Emergency Visit Emergency Visit: Yes ED Registration Date: 04/04/18 Care time: The patient presented to the Emergency Department on the above date and was hospitalized for further evaluation of their emergent condition. - New Patient This patient is new to me today: No - Critical Care Critical Care patient: No - Discharge Referral Referred to [facility] Med P.C.: No
[2018-04-06] MEDS ORDERED: LISINOPRIL 10 MG TABLET (FP) PO ONE (16:00)
--- NOTE | 2018-04-06 17:07 | EKG ---
Test Reason : Blood Pressure : / mmHG Vent. Rate : 087 BPM Atrial Rate : 087 BPM P-R Int : 172 ms QRS Dur : 106 ms QT Int : 394 ms P-R-T Axes : 058 -06 144 degrees QTc Int : 474 ms SINUS RHYTHM WITH PREMATURE ATRIAL COMPLEXES POSSIBLE LEFT ATRIAL ENLARGEMENT LEFT VENTRICULAR HYPERTROPHY WITH REPOLARIZATION ABNORMALITY ABNORMAL ECG WHEN COMPARED WITH ECG OF 04-APR-2018 12:27, PREMATURE ATRIAL COMPLEXES ARE NOW PRESENT T WAVE INVERSION NOW EVIDENT IN ANTERIOR LEADS Confirmed by MD Gavni, Ezra ([id number]) on 04/06/2018 5:07:26 PM Referred By: Confirmed By:Ezra Alonso MD
[2018-04-06] MEDS: ATORVASTATIN CA 40 MG TABLET (FP) PO SCH (21:19)
[2018-04-06] MEDS: CARVEDILOL 12.5 MG TABLET (FP) PO SCH (21:19)
[2018-04-06] MEDS: POTASSIUM CHLORIDE TABS 20 MEQ TABLET.ER (FP) PO SCH (21:19)
[2018-04-07] MEDS: FUROSEMIDE 40 MG/4 ML INJECTABLE VIAL IVPUSH SCH (06:25)
[2018-04-07 06:54] LABS: BASO % 1.1 % (0-2.0); EOS % 5.1 % (0-4.5); HEMATOCRIT 40.6 % (35.4-49); HEMOGLOBIN 13.2 GM/dL (11.7-16.9); LYMPH % 21.5 % (8-40); MCHC 32.6 g/dl (32.0-35.9); MEAN CELL VOLUME 92.1 fl (80-96); MEAN PLT VOLUME 10.8 fl (7.5-11.1); MONO % 7.1 % (3.8-10.2); NEUT % 65.2 % (42.8-82.8); PLATELET COUNT 137 K/MM3 (134-434); RBC 4.41 M/mm3 (4.00-5.60); WHITE BLOOD COUNT 6.7 K/mm3 (4.0-10.0)
[2018-04-07 07:14] LABS: ALBUMIN 3.2 g/dl (3.4-5.0); ALK PHOS 85 U/L (45-117); ANION GAP 8 MMOL/L (8-16); BILIRUBIN,TOTAL 5.1 mg/dL (0.2-1); BLOOD UREA NITROGEN 26 mg/dL (7-18); CALCIUM 8.4 mg/dL (8.5-10.1); CHLORIDE 107 mmol/L (98-107); CO2 26 mmol/L (21-32); CREATININE 1.1 mg/dL (0.55-1.3); GLUCOSE,RANDOM 76 mg/dL (74-106); LDH 238 U/L (87-246); POTASSIUM 3.6 mmol/L (3.5-5.1); SGOT/AST 17 U/L (15-37); SGPT/ALT 22 U/L (13-61); SODIUM 141 mmol/L (136-145); TOT PROT 6.3 g/dl (6.4-8.2)
--- NOTE | 2018-04-07 09:09 | PN ---
Physical Exam: SUBJECTIVE: Patient seen and examined at the bedside. Feel well, denies shortness of breath or chest pain. OBJECTIVE: bp improving on current meds bilirubin elevated, but down trending. Vital Signs Period Temp Pulse Resp BP Sys/Mix Pulse Ox Last 24 Hr 97.4 F-98.5 F 70-119 18-22 154-178/91-108 96 GENERAL: The patient is awake, alert, and fully oriented, in no acute distress, sclera jaundice HEAD: Normal with no signs of trauma. EYES: PERRL, extraocular movements intact, sclera anicteric, conjunctiva clear. No ptosis. ENT: Ears normal, nares patent, oropharynx clear without exudates, moist mucous membranes. NECK: Trachea midline, full range of motion, supple. LUNGS: Breath sounds equal, clear to auscultation bilaterally HEART: Regular rate and rhythm ABDOMEN: Soft, nontender, nondistended, normoactive bowel sounds, no guarding NEUROLOGICAL: Normal speech, gait steady PSYCH: Normal mood, normal affect. SKIN: Warm, dry, normal turgor, no rashes or lesions noted Laboratory Results - last 24 hr 04/07/18 04/07/18 05:30 05:30 WBC 6.7 RBC 4.41 Hgb 13.2 Hct 40.6 MCV 92.1 MCH 30.0 MCHC 32.6 RDW 17.0 H Plt Count 137 MPV 10.8 Absolute Neuts (auto) 4.4 Neutrophils % 65.2 Lymphocytes % 21.5 D Monocytes % 7.1 Eosinophils % 5.1 H D Basophils % 1.1 Nucleated RBC % 0 Sodium 141 Potassium 3.6 Chloride 107 Carbon Dioxide 26 Anion Gap 8 BUN 26 H Creatinine 1.1 Creat Clearance w eGFR > 60 Random Glucose 76 Calcium 8.4 L Magnesium 2.0 Total Bilirubin 5.1 H AST 17 ALT 22 Alkaline Phosphatase 85 LD Total 238 Total Protein 6.3 L Albumin 3.2 L Active Medications Generic Name Dose Route Start Last Admin Trade Name Freq PRN Reason Stop Dose Admin Albuterol/Ipratropium 1 amp 04/04/18 18:23 Duoneb - NEB Q6H PRN SHORTNESS OF BREATH Aspirin 81 mg 04/05/18 18:45 04/06/18 09:08 Ecotrin - PO 81 mg DAILY SONIA Administration Atorvastatin Calcium 40 mg 04/05/18 22:00 04/06/18 21:19 Lipitor - PO 40 mg HS SONIA Administration Carvedilol 12.5 mg 04/06/18 22:00 04/06/18 21:19 Coreg - PO 12.5 mg BID SONIA Administration Furosemide 40 mg 04/05/18 06:00 04/07/18 06:25 Lasix Injection - IVPUSH 40 mg BID@0600,1400 SONIA Administration Labetalol HCl 10 mg 04/04/18 16:54 04/06/18 08:41 Normodyne Injection - IVPUSH 10 mg Q4H-IV PRN Administration SBP >180, DBP >110 Lisinopril 20 mg 04/07/18 10:00 Prinivil PO DAILY SONIA Potassium Chloride 20 meq 04/06/18 22:00 04/06/18 21:19 K-Dur - PO 20 meq BID SONIA Administration ASSESSMENT/PLAN: Patient is a 48 year old male with a past medical history of hypertension, ETOH abuse and childhood asthma. He comes to the ED today with complaints of difficulty breathing specifically when he lays down flat. Card: Hypertensive urgency/ Shortness of breath in the setting of uncontrolled blood pressure with elevated BNP on admission. BP at home reported to be in the 190s systolic. BP here remains elevated, but improving, last bp 150s/100s. On Coreq 12.5mg bid, lisinopril 20mg daily. On lasix 40mg bid for volume overload, will add potassium bid for hypokalemia. Shortness of breath resolved. on room air. respiratory pre and post ordered. lipid panel reviewed, hmga1c stable, tsh wnl. HLD, acute. elevated lipid panel. on lipitor Pulm: Shortness of breath,resolved Seen by pulmonary, sleep study as an outpatient ordered. . GI: Jaundice with elevated bili Bili 3.2>5, sclera jaundice. abdominal u/s with no acute pathology. hepatitis panel ordered. Patient reports intermittent pain to right mid back. LFT wnl. Obesity. BMI 41. risk factor along with elevated BP. dietary consulted. Psyche: ETOH abuse, denies current use. last drink of ~ 10 beers per night was on . none since. stopped without detoxing. muscular: Gout, not in any flare. uses motrin for relief of gout flares. Visit type - Emergency Visit Emergency Visit: Yes ED Registration Date: 04/04/18 Care time: The patient presented to the Emergency Department on the above date and was hospitalized for further evaluation of their emergent condition. - New Patient This patient is new to me today: No - Critical Care Critical Care patient: No - Discharge Referral Referred to [facility] Med P.C.: No
[2018-04-07] MEDS: CARVEDILOL 12.5 MG TABLET (FP) PO SCH ×2 (09:23→23:23)
[2018-04-07] MEDS: POTASSIUM CHLORIDE TABS 20 MEQ TABLET.ER (FP) PO SCH ×2 (09:24→23:23)
[2018-04-07] MEDS: ASPIRIN COATED 81 MG TABLET.EC PO SCH (09:24)
[2018-04-07] MEDS ORDERED: LISINOPRIL 20 MG TABLET (FP) PO SCH (10:00)
--- NOTE | 2018-04-07 10:52 | PN ---
Progress Note (short form) - Note Progress Note: cc: sob s: feels back to normal. able to lie flat without symptoms, no shortness of breath tele: sinus, occ PVC, brief SVT Current Medications Albuterol/Ipratropium (Duoneb -) 1 amp NEB Q6H PRN PRN Reason: SHORTNESS OF BREATH Aspirin (Ecotrin -) 81 mg PO DAILY COUNT INCLUDES THE [facility] Last Admin: 04/07/18 09:24 Dose: 81 mg Atorvastatin Calcium (Lipitor -) 40 mg PO HS COUNT INCLUDES THE [facility] Last Admin: 04/06/18 21:19 Dose: 40 mg Carvedilol (Coreg -) 12.5 mg PO BID COUNT INCLUDES THE [facility] Last Admin: 04/07/18 09:23 Dose: 12.5 mg Furosemide (Lasix Injection -) 40 mg IVPUSH BID@0600,1400 COUNT INCLUDES THE [facility] Last Admin: 04/07/18 06:25 Dose: 40 mg Labetalol HCl (Normodyne Injection -) 10 mg IVPUSH Q4H-IV PRN PRN Reason: SBP >180, DBP >110 Last Admin: 04/06/18 08:41 Dose: 10 mg Lisinopril (Prinivil) 20 mg PO DAILY COUNT INCLUDES THE [facility] Last Admin: 04/07/18 09:23 Dose: 20 mg Potassium Chloride (K-Dur -) 20 meq PO BID COUNT INCLUDES THE [facility] Last Admin: 04/07/18 09:24 Dose: 20 meq Vital Signs Vital Signs Period Temp Pulse Resp BP Sys/Mix Pulse Ox Last 24 Hr 97.4 F-98.5 F 70-119 18-20 154-178/91-108 96-98 Constitutional: Yes: Well Nourished, No Distress Eyes: Yes: Conjunctiva Clear, EOM Intact HENT: Yes: Atraumatic, Normocephalic Neck: Yes: Supple, Trachea Midline Respiratory: Yes: Regular, CTA Bilaterally Gastrointestinal: Yes: Normal Bowel Sounds, Soft Renal/: Yes: WNL Cardiovascular: Yes: Regular Rate and Rhythm JVD: Yes Carotid Bruit: No Heart Sounds: Yes: S1, S2 Edema: No Peripheral Pulses WNL: Yes Peripheral Pulses: 2+ Left Doralis Pedis, 2+ Right Dorsalis Pedis Integumentary: Yes: WNL Neurological: Yes: Alert, Oriented Psychiatric: Yes: Alert, Oriented Assessment/Plan echo 03/2018 EF 25-30%, LV function severely reduced, mod LA dilation, mild MR, mild TR EKG sinus, LVH, nonspecific T wave changes, LA enlargement CXR: c/w congestion 48M h/o HTN, gout, noncompliant with meds/doctors visits p/w dyspnea on exertion , orthopnea, new cardiomyopathy, HTN, acute HF exacerbation Cardiomyopathy, acute systolic HF exacerbation - no prior cardiac history - likely etiology is uncontrolled HTN, will defer ischemic workup as outpatient - started carvedilol, lisinopril; uptitrating - increase lisinopril to 40 mg daily, continue coreg 12.5 mg BID - patient appears euvolemic not short of breath - dc IV lasix, start lasix 40 mg PO daily - discussed daily weights, low salt diet. advised to call the clinic if weight gain >3 lbs, short of breath, edema develops - no further cardiac workup as inpatient, follow up in clinic next week HTN - baseline BP 180s-190s/100s-110s per patient and family member, he was not taking medications as prescribed at home - on lisinopril and carvedilol as above - PRN labetalol for BP >190/110 - given high baseline will avoid aggressive lowering of BP to avoid cerebral hypoperfusion - improving HLD - lipid panel reviewed, LDL 125, HDL 23 - start atorvastatin 40 mg daily Gout - manage per primary
[2018-04-07 11:51] VITALS: BMI 41.8
--- NOTE | 2018-04-07 17:52 | CON.GI ---
Consult Consult Specialty:: GI Referred by:: Hospitalist Service Reason for Consultation:: Elevated bilirubin - History of Present Illness Chief Complaint: Shortness of breath History of Present Illness: 48M admitted for evaluation of progressive shortness of breath. He states that bit has been going on through the summer. Echocardiogram revealed him to have EF of 20-25% with dilated left atrium. Noted to have isolated hyperbilurubinemia. bilirubin on admission was 3.2. Repeated bilirubin 04/05 was 5.1 with 0.5 direct bilirubin. In review of meditech he was noted to have an isolated hyperbilirubinemia of 1.1 01/28. He denies abdominal pain. He drink2 9 beers per day and has been frinking since he was 22. Abdominal US revealed mild surface irregularity of the liver with normal appearing biliary tract. - History Source History Provided By: Patient, Family Member (Mother present at bedside), Medical Record - Past Medical History Cardio/Vascular: Yes: HTN Rheumatology: Yes: Gout - Alcohol/Substance Use Hx Alcohol Use: No Number of Drinks Daily: 9 (beer) History of Substance Use: reports: None - Smoking History Smoking history: Never smoked Have you smoked in the past 12 months: No - Social History Usual Living Arrangement: With Parent ADL: Independent Occupation: Unemployed Place of : [employer] [facility] History of Recent Travel: No (None) Home Medications - Allergies Allergies/Adverse Reactions: Allergies Allergy/AdvReac Type Severity Reaction Status Date / Time No Known Allergies Allergy Verified 04/04/18 12:10 - Home Medications Home Medications: Ambulatory Orders Amlodipine Besylate 10 mg PO DAILY 04/04/18 Carvedilol [Coreg -] 25 mg PO BID 04/05/18 Colchicine [Colcrys -] 0.6 mg PO BID 04/05/18 Family Disease History - Family Disease History Family Disease History: Other: Father (: 50's: Prostate Ca), Mother (Alive: healthy), Brother (2, healthy) Other Family History: No children. No family history of colorectal cancer or other GI malignancy Review of Systems - Review of Systems Constitutional: denies: Fever, Night Sweats, Unintentional Wgt. Loss Cardiovascular: reports: Edema. denies: Chest Pain Respiratory: reports: SOB. denies: Cough Gastrointestinal: denies: Abdominal Pain, Constipation, Dysphagia, Indigestion, Melena, Rectal Bleeding Physical Exam-GI Vital Signs: Vital Signs Temperature 98.2 F 04/07/18 14:05 Pulse Rate 78 04/07/18 14:05 Respiratory Rate 18 04/07/18 14:05 Blood Pressure 153/82 04/07/18 14:05 O2 Sat by Pulse Oximetry (%) 98 04/07/18 10:45 Constitutional: Yes: Calm Eyes: Yes: Sclera Icterus Cardiovascular: Yes: Regular Rate and Rhythm. No: Murmur Respiratory: Yes: CTA Bilaterally Gastrointestinal Inspection: No: Distention, Scars ...Auscultate: Yes: Normoactive Bowel Sounds ...Palpate: No: Hepatomegaly, Splenomegaly ...Percussion: No: Tympanitic Edema: No (No LE edema) Neurological: Yes: Alert, Oriented Labs: CBC, BMP 04/07/18 05:30 04/07/18 05:30 Hepatic Panel Total Bilirubin 5.1 mg/dL (0.2-1) H 04/07/18 05:30 Direct Bilirubin 0.5 mg/dL (0.0-0.2) H 04/05/18 05:30 AST 17 U/L (15-37) 04/07/18 05:30 ALT 22 U/L (13-61) 04/07/18 05:30 Alkaline Phosphatase 85 U/L (45-117) 04/07/18 05:30 Albumin 3.2 g/dl (3.4-5.0) L 04/07/18 05:30 Imaging - Results Ultrasound: Report Reviewed Problem List - Problems (1) Indirect hyperbilirubinemia Assessment/Plan: Mr. Chavarria has an isolated hyperbilirubinemia in 2017. Given that this appears to be predominantly indirect, an underlying condition such as Gilbert's disease would need to be considered, with bilirubin rising in the setting of a acutre / subacute physical stressor such as his CHF. Passive congestion from CHF as well as heavy daily alcohol consumption can contribute however I would expect a higher proportion of direct bilurubin to reflect liver dysfunction. Biliary tract appeared normal with normal alkaline phosphatase as well. Advised Mr. Chavarria that he needs to completely abstain from alcohol as continued alcohol use would likely speed up further deterioration of his cardiac function , progression of possible early cirrhosis and in turn expedite a diminished quiality of life and his . Ordered hepatic panel and PT/INR for the morning. Avoid hepatotoxic agents Hepatitis A/B/C screening serologies ordered for AM Code(s): E80.6 - OTHER DISORDERS OF BILIRUBIN METABOLISM
[2018-04-07] MEDS ORDERED: LISINOPRIL 20 MG TABLET (FP) PO ONE (20:39)
--- NOTE | 2018-04-07 20:54 | CONSULT ---
Consult - text type - Consultation Consultation Note: Patient seen and examined 48M h/o HTN, gout, noncompliant with meds/doctors visits p/w dyspnea on exertion , orthopnea. Has had these symptoms since the summer for the last few months. No chest pain. Has h/o HTN, per patient's family member BP baseline 180s-190s /120s-130s. Had been on medications at home including amlodipine, which he was not taking. In the ER noted to have congestion on CXR, BNP>8000, trop negative. Was given nitro, labetolol IV with improvement in intial BP 205/129 to 199/133. We have been consulted to rule out hemolysis given elevated indirect hyperbilirubinemia - History Source History Provided By: Patient - Past Medical History Cardio/Vascular: Yes: HTN - Smoking History Smoking history: Never smoked - Allergies Allergies/Adverse Reactions: Allergies Allergy/AdvReac Type Severity Reaction Status Date / Time No Known Allergies Allergy Verified 04/04/18 12:10 Family Disease History - Family Disease History Family History: Unremarkable Vital Signs Temperature 98.1 F 04/04/18 16:05 Pulse Rate 85 04/04/18 16:05 Respiratory Rate 34 H 04/04/18 16:05 Blood Pressure 193/133 04/04/18 16:05 O2 Sat by Pulse Oximetry (%) 95 04/04/18 16:05 Cor: RSR, No murmurs, No gallops Lungs: Clear to P&A Abd: Soft, Normal bowel sounds, No organomegaly Ext:No significant edema Skin: No rashes, Integument intact Abnormal Lab Results 04/08/18 04/08/18 04/08/18 05:30 05:30 05:30 RDW 17.0 H Eosinophils % 4.6 H PT with INR 14.30 H INR 1.27 H Anion Gap 7 L BUN 29 H Total Bilirubin 3.8 H Direct Bilirubin 04/08/18 05:30 RDW Eosinophils % PT with INR INR Anion Gap BUN Total Bilirubin 3.7 H Direct Bilirubin 0.7 H Active Medications Generic Name Dose Route Start Last Admin Trade Name Freq PRN Reason Stop Dose Admin Albuterol/Ipratropium 1 amp 04/04/18 18:23 04/07/18 11:22 Duoneb - NEB 1 amp Q6H PRN Administration SHORTNESS OF BREATH Aspirin 81 mg 04/05/18 18:45 04/08/18 09:15 Ecotrin - PO 81 mg DAILY SONIA Administration Atorvastatin Calcium 40 mg 04/05/18 22:00 04/08/18 21:10 Lipitor - PO 40 mg HS SONIA Administration Carvedilol 25 mg 04/08/18 22:00 04/08/18 21:10 Coreg - PO 25 mg BID SONIA Administration Furosemide 40 mg 04/08/18 10:00 04/08/18 09:15 Lasix - PO 40 mg DAILY SONIA Administration Labetalol HCl 10 mg 04/04/18 16:54 04/06/18 08:41 Normodyne Injection - IVPUSH 10 mg Q4H-IV PRN Administration SBP >180, DBP >110 Lisinopril 40 mg 04/08/18 10:00 04/08/18 09:15 Prinivil PO 40 mg DAILY SONIA Administration Potassium Chloride 20 meq 04/06/18 22:00 04/08/18 21:10 K-Dur - PO 20 meq BID SONIA Administration A/P 48M h/o HTN, gout, noncompliant with meds/doctors visits p/w dyspnea on exertion , orthopnea, new cardiomyopathy, HTN, acute HF exacerbation We have been consulted for isolated hyperbilirubinemia. Given that this appears to be predominantly indirect, an underlying condition such as Gilbert's disease would need to be considered, with bilirubin rising in the setting of a acutre / subacute physical stressor such as his CHF. Biliary tract appeared normal with normal AST/ALT/alkaline phosphatase as well. Echocardiogram revealed him to have EF of 20-25% with dilated left atrium. Noted to have isolated hyperbilurubinemia. bilirubin on admission was 3.2. Repeated bilirubin 04/05 was 5.1 with 0.5 direct bilirubin. Abdominal US revealed mild surface irregularity of the liver with normal appearing biliary tract. ISolated indirect hyperbilirubinemia/Nl liver enzymes/Nl hemoglobin --unlikely hemolysis will check LDH/[place]/hatoglobin ?[place] ? component of CHF+ alcohol will follow
[2018-04-07] MEDS: ATORVASTATIN CA 40 MG TABLET (FP) PO SCH (23:23)
[2018-04-08 06:55] LABS: BASO % 1.3 % (0-2.0); EOS % 4.6 % (0-4.5); HEMATOCRIT 42.4 % (35.4-49); HEMOGLOBIN 13.9 GM/dL (11.7-16.9); LYMPH % 23.7 % (8-40); MCH 30.2 pg (25.7-33.7); MCHC 32.8 g/dl (32.0-35.9); MEAN PLT VOLUME 10.4 fl (7.5-11.1); MONO % 5.9 % (3.8-10.2); NEUT % 64.5 % (42.8-82.8); PLATELET COUNT 156 K/MM3 (134-434); RBC 4.61 M/mm3 (4.00-5.60); WHITE BLOOD COUNT 6.1 K/mm3 (4.0-10.0)
[2018-04-08 07:06] LABS: INR 1.27 (0.83-1.09); PROTHROMBIN TIME (PATIENT) 14.3 SEC (9.7-13.0)
[2018-04-08 07:30] LABS: ALBUMIN 3.4 g/dl (3.4-5.0); ALK PHOS 89 U/L (45-117); ANION GAP 7 MMOL/L (8-16); BILIRUBIN,TOTAL 3.8 mg/dL (0.2-1); BLOOD UREA NITROGEN 29 mg/dL (7-18); CALCIUM 8.8 mg/dL (8.5-10.1); CHLORIDE 107 mmol/L (98-107); CO2 29 mmol/L (21-32); CREATININE 1.2 mg/dL (0.55-1.3); GLUCOSE,RANDOM 76 mg/dL (74-106); MAGNESIUM 2.2 mg/dL (1.8-2.4); POTASSIUM 4.1 mmol/L (3.5-5.1); SGOT/AST 17 U/L (15-37); SGPT/ALT 27 U/L (13-61); SODIUM 143 mmol/L (136-145); TOT PROT 6.7 g/dl (6.4-8.2)
[2018-04-08 07:35] LABS: ALBUMIN 3.4 g/dl (3.4-5.0); BILIRUBIN,DIRECT 0.7 mg/dL (0.0-0.2); BILIRUBIN,TOTAL 3.7 mg/dL (0.2-1); TOT PROT 6.7 g/dl (6.4-8.2)
[2018-04-08] MEDS: CARVEDILOL 12.5 MG TABLET (FP) PO SCH (09:14)
[2018-04-08] MEDS: LISINOPRIL 20 MG TABLET (FP) PO SCH (09:15)
[2018-04-08] MEDS: FUROSEMIDE 40 MG TABLET (FP) PO SCH (09:15)
[2018-04-08] MEDS: ASPIRIN COATED 81 MG TABLET.EC PO SCH (09:15)
[2018-04-08] MEDS: POTASSIUM CHLORIDE TABS 20 MEQ TABLET.ER (FP) PO SCH ×2 (09:15→21:10)
--- NOTE | 2018-04-08 10:38 | PN ---
Progress Note (short form) - Note Progress Note: cc: sob s: no sob, cp, palps, dizzy, edema tele: sinus, PVCs, NSVT Current Medications Albuterol/Ipratropium (Duoneb -) 1 amp NEB Q6H PRN PRN Reason: SHORTNESS OF BREATH Last Admin: 04/07/18 11:22 Dose: 1 amp Aspirin (Ecotrin -) 81 mg PO DAILY [facility] Last Admin: 04/08/18 09:15 Dose: 81 mg Atorvastatin Calcium (Lipitor -) 40 mg PO HS [facility] Last Admin: 04/07/18 23:23 Dose: 40 mg Carvedilol (Coreg -) 12.5 mg PO BID [facility] Last Admin: 04/08/18 09:14 Dose: 12.5 mg Furosemide (Lasix -) 40 mg PO DAILY [facility] Last Admin: 04/08/18 09:15 Dose: 40 mg Labetalol HCl (Normodyne Injection -) 10 mg IVPUSH Q4H-IV PRN PRN Reason: SBP >180, DBP >110 Last Admin: 04/06/18 08:41 Dose: 10 mg Lisinopril (Prinivil) 40 mg PO DAILY [facility] Last Admin: 04/08/18 09:15 Dose: 40 mg Potassium Chloride (K-Dur -) 20 meq PO BID [facility] Last Admin: 04/08/18 09:15 Dose: 20 meq Vital Signs Vital Signs Period Temp Pulse Resp BP Sys/Mix Pulse Ox Last 24 Hr 97.7 F-98.2 F 71-109 18-18 148-162/72-111 98 Constitutional: Yes: Well Nourished, No Distress Eyes: Yes: Conjunctiva Clear, EOM Intact HENT: Yes: Atraumatic, Normocephalic Neck: Yes: Supple, Trachea Midline Respiratory: Yes: Regular, CTA Bilaterally Gastrointestinal: Yes: Normal Bowel Sounds, Soft Renal/: Yes: WNL Cardiovascular: Yes: Regular Rate and Rhythm JVD: Yes Carotid Bruit: No Heart Sounds: Yes: S1, S2 Edema: No Peripheral Pulses WNL: Yes Peripheral Pulses: 2+ Left Doralis Pedis, 2+ Right Dorsalis Pedis Integumentary: Yes: WNL Neurological: Yes: Alert, Oriented Psychiatric: Yes: Alert, Oriented Assessment/Plan echo 03/2018 EF 25-30%, LV function severely reduced, mod LA dilation, mild MR, mild TR EKG sinus, LVH, nonspecific T wave changes, LA enlargement CXR: c/w congestion 48M h/o HTN, gout, noncompliant with meds/doctors visits p/w dyspnea on exertion , orthopnea, new cardiomyopathy, HTN, acute HF exacerbation Cardiomyopathy, acute systolic HF exacerbation - no prior cardiac history - likely etiology is uncontrolled HTN, will defer ischemic workup as outpatient - patient also now endorsing history of alcohol intake, several drinks a day, advised to stop drinking alcohol - started carvedilol, lisinopril; uptitrating - patient appears euvolemic not short of breath after receiving IV lasix 40 mg BID, now on PO - continue lasix 40 mg PO daily, lisinopril 40 mg daily - increase coreg to 25 mg BID - discussed daily weights, low salt diet. advised to call the clinic if weight gain >3 lbs, short of breath, edema develops - no further cardiac workup as inpatient, follow up in clinic in one week [facility] - needs formal sleep study, Dr. Rushing following - discussed with patient importance of screening/treatment in setting of HTN, cardiomyopathy elevated bilirubin - eval by heme, GI - advised to stop EtOH HTN - baseline BP 180s-190s/100s-110s per patient and family member, he was not taking medications as prescribed at home - on lisinopril and carvedilol as above - PRN labetalol for BP >190/110 - given high baseline will avoid aggressive lowering of BP to avoid cerebral hypoperfusion - improving HLD - lipid panel reviewed, LDL 125, HDL 23 - start atorvastatin 40 mg daily Gout - manage per primary
--- NOTE | 2018-04-08 11:21 | PN ---
Progress Note, Physician History of Present Illness: pulmonary alert,feeling better,-sob,-cp - Current Medication List Current Medications: Active Medications Albuterol/Ipratropium (Duoneb -) 1 amp NEB Q6H PRN PRN Reason: SHORTNESS OF BREATH Last Admin: 04/07/18 11:22 Dose: 1 amp Aspirin (Ecotrin -) 81 mg PO DAILY [facility] Last Admin: 04/08/18 09:15 Dose: 81 mg Atorvastatin Calcium (Lipitor -) 40 mg PO HS [facility] Last Admin: 04/07/18 23:23 Dose: 40 mg Carvedilol (Coreg -) 25 mg PO BID [facility] Furosemide (Lasix -) 40 mg PO DAILY [facility] Last Admin: 04/08/18 09:15 Dose: 40 mg Labetalol HCl (Normodyne Injection -) 10 mg IVPUSH Q4H-IV PRN PRN Reason: SBP >180, DBP >110 Last Admin: 04/06/18 08:41 Dose: 10 mg Lisinopril (Prinivil) 40 mg PO DAILY [facility] Last Admin: 04/08/18 09:15 Dose: 40 mg Potassium Chloride (K-Dur -) 20 meq PO BID [facility] Last Admin: 04/08/18 09:15 Dose: 20 meq - Objective Vital Signs: Vital Signs Temperature 97.7 F 04/08/18 05:00 Pulse Rate 71 04/08/18 05:00 Respiratory Rate 18 04/08/18 05:00 Blood Pressure 160/103 04/08/18 05:00 O2 Sat by Pulse Oximetry (%) 98 04/07/18 10:45 Constitutional: Yes: Calm, Obese Eyes: Yes: WNL HENT: Yes: WNL Neck: Yes: WNL Cardiovascular: Yes: Regular Rate and Rhythm, S1, S2 Respiratory: Yes: Diminished Gastrointestinal: Yes: Normal Bowel Sounds, Soft Extremities: Yes: WNL Edema: No Labs: CBC, BMP 04/08/18 05:30 04/08/18 05:30 INR, PTT INR 1.27 (0.83-1.09) H 04/08/18 05:30 Problem List - Problems (1) Hypertensive urgency Code(s): I16.0 - HYPERTENSIVE URGENCY (2) CHF (congestive heart failure) Code(s): I50.9 - HEART FAILURE, UNSPECIFIED (3) Cardiomyopathy Code(s): I42.9 - CARDIOMYOPATHY, UNSPECIFIED (4) Systolic CHF, acute Code(s): I50.21 - ACUTE SYSTOLIC (CONGESTIVE) HEART FAILURE (5) Elevated bilirubin Code(s): R17 - UNSPECIFIED JAUNDICE (6) Obesities, morbid Code(s): E66.01 - MORBID (SEVERE) OBESITY DUE TO EXCESS CALORIES (7) Dyspnea Code(s): R06.00 - DYSPNEA, UNSPECIFIED Assessment/Plan IMP ACUTE SYSTOLIC CHF improving CARDIOMYOPATHY HYPERTENSIVE URGENCY GOUT H/O ASTHMA SEVERE OSAS ON SLEEP SCREEN ELEVATED BILIRUBIN PLAN LASIX TITRATE BP MEDS DAILY WTS MONITOR LYTES,BILIRUBIN F/U CHEST X-RAYS FORMAL SLEEP STUDIES OUTPATIENT DR MURRAY Problem List - Problems (1) Hypertensive urgency Code(s): I16.0 - HYPERTENSIVE URGENCY (2) CHF (congestive heart failure) Code(s): I50.9 - HEART FAILURE, UNSPECIFIED (3) Cardiomyopathy Code(s): I42.9 - CARDIOMYOPATHY, UNSPECIFIED (4) Systolic CHF, acute Code(s): I50.21 - ACUTE SYSTOLIC (CONGESTIVE) HEART FAILURE (5) Elevated bilirubin Code(s): R17 - UNSPECIFIED JAUNDICE (6) Obesities, morbid Code(s): E66.01 - MORBID (SEVERE) OBESITY DUE TO EXCESS CALORIES (7) Dyspnea Code(s): R06.00 - DYSPNEA, UNSPECIFIED
--- NOTE | 2018-04-08 13:18 | PN ---
Physical Exam: SUBJECTIVE: Patient seen and examined at bedside. No new complaints. No overnight events. Breathing is much better. Leg swelling is minimal . Feels much better. Denies CP,SCHULTZ,SOB, abdominal pain, Nausea or vomiting. OBJECTIVE: Vital Signs Period Temp Pulse Resp BP Sys/Mix Pulse Ox Last 24 Hr 97.7 F-98.2 F 71-82 18-18 148-178/72-111 98 GENERAL: AAOx3, NAD HEAD: NC/AT ENT: moist mucous membranes. NECK: no JVD, supple. LUNGS: CTAB, minimal crackles at lung base bilaterally, No wheezing. HEART: RRR, S1S2, no M/G/R ABDOMEN: Soft, NT/ND, NABS. EXTREMITIES: 2+ pulses, warm, well-perfused, trace edema. NEUROLOGICAL: Cranial nerves II through XII grossly intact. no focal deficit. Normal speech, gait not observed. PSYCH: Normal mood, normal affect. Laboratory Results - last 24 hr 04/07/18 04/08/18 04/08/18 05:30 05:30 05:30 WBC 6.1 RBC 4.61 Hgb 13.9 Hct 42.4 MCV 92.0 MCH 30.2 MCHC 32.8 RDW 17.0 H Plt Count 156 MPV 10.4 Absolute Neuts (auto) 3.9 Neutrophils % 64.5 Lymphocytes % 23.7 Monocytes % 5.9 Eosinophils % 4.6 H Basophils % 1.3 Nucleated RBC % 0 Haptoglobin 125 PT with INR INR Sodium 143 Potassium 4.1 Chloride 107 Carbon Dioxide 29 Anion Gap 7 L BUN 29 H Creatinine 1.2 Creat Clearance w eGFR > 60 Random Glucose 76 Calcium 8.8 Magnesium 2.2 Total Bilirubin 3.8 H Direct Bilirubin AST 17 ALT 27 Alkaline Phosphatase 89 Total Protein 6.7 Albumin 3.4 Direct Antiglob Test 04/08/18 04/08/18 04/08/18 05:30 05:30 05:30 WBC RBC Hgb Hct MCV MCH MCHC RDW Plt Count MPV Absolute Neuts (auto) Neutrophils % Lymphocytes % Monocytes % Eosinophils % Basophils % Nucleated RBC % Haptoglobin PT with INR 14.30 H INR 1.27 H Sodium Potassium Chloride Carbon Dioxide Anion Gap BUN Creatinine Creat Clearance w eGFR Random Glucose Calcium Magnesium Total Bilirubin 3.7 H Direct Bilirubin 0.7 H AST 16 ALT 26 Alkaline Phosphatase 87 Total Protein 6.7 Albumin 3.4 Direct Antiglob Test Negative Active Medications Generic Name Dose Route Start Last Admin Trade Name Freq PRN Reason Stop Dose Admin Albuterol/Ipratropium 1 amp 04/04/18 18:23 04/07/18 11:22 Duoneb - NEB 1 amp Q6H PRN Administration SHORTNESS OF BREATH Aspirin 81 mg 04/05/18 18:45 04/08/18 09:15 Ecotrin - PO 81 mg DAILY [facility] Administration Atorvastatin Calcium 40 mg 04/05/18 22:00 04/07/18 23:23 Lipitor - PO 40 mg HS [facility] Administration Carvedilol 25 mg 04/08/18 22:00 Coreg - PO BID [facility] Furosemide 40 mg 04/08/18 10:00 04/08/18 09:15 Lasix - PO 40 mg DAILY [facility] Administration Labetalol HCl 10 mg 04/04/18 16:54 04/06/18 08:41 Normodyne Injection - IVPUSH 10 mg Q4H-IV PRN Administration SBP >180, DBP >110 Lisinopril 40 mg 04/08/18 10:00 04/08/18 09:15 Prinivil PO 40 mg DAILY [facility] Administration Potassium Chloride 20 meq 04/06/18 22:00 04/08/18 09:15 K-Dur - PO 20 meq BID [facility] Administration ASSESSMENT/PLAN: 48M with history of HTN and gout admitted for evaluation of progressive shortness of breath.Found to be in acute systolic chf. Found to have isolated hyperbilirubinemia. Problem List - Problems (1) Indirect hyperbilirubinemia Assessment/Plan: Considering isolated indirect hyperbilirubinemia possible Gilbert's * NL Liver enzymes, NL hemoglobin makes hemolysis unlikely. * Biliary tract appeared normal with normal AST/ALT/alkaline phosphatase as well. * LDH/Cuca/hatoglobin pending * H/O of ETOH abuse may play role given acute stressor of CHF. Visit type - Emergency Visit Emergency Visit: Yes ED Registration Date: 04/04/18 Care time: The patient presented to the Emergency Department on the above date and was hospitalized for further evaluation of their emergent condition. - New Patient This patient is new to me today: Yes Date on this admission: 04/09/18 - Critical Care Critical Care patient: No - Discharge Referral Referred to [facility] No
--- NOTE | 2018-04-08 16:37 | PN ---
Progress Note (short form) - Note Progress Note: Hep B surface antibody negative. Should be offered vaccination when acute issues are resolved Problem List - Problems (1) Indirect hyperbilirubinemia Code(s): E80.6 - OTHER DISORDERS OF BILIRUBIN METABOLISM
--- NOTE | 2018-04-08 18:07 | PN ---
Teaching Attending Note Name of Resident: Richie Knox ATTENDING PHYSICIAN STATEMENT I saw and evaluated the patient. I reviewed the resident's note and discussed the case with the resident. I agree with the resident's findings and plan as documented. SUBJECTIVE: Patient seen and examined Improving with less dyspnea and no chest pains Last Vital Signs Temp Pulse Resp BP Pulse Ox 98.2 F 66 18 174/98 H 98 04/08/18 14:00 04/08/18 14:00 04/08/18 14:00 04/08/18 14:00 04/08/18 09:00 HEENT: HOLDEN, EOM Intact Oropharynx: No thrush, No mucositis Cor: RSR, No murmurs, No gallops Lungs: Clear to P&A Abd: Soft, Normal bowel sounds, No organomegaly Ext:No significant edema Skin: No rashes, Integument intact CBC, BMP 04/08/18 05:30 04/08/18 05:30 Abnormal Lab Results 04/08/18 04/08/18 04/08/18 05:30 05:30 05:30 RDW 17.0 H Eosinophils % 4.6 H PT with INR 14.30 H INR 1.27 H Anion Gap 7 L BUN 29 H Total Bilirubin 3.8 H Direct Bilirubin 04/08/18 05:30 RDW Eosinophils % PT with INR INR Anion Gap BUN Total Bilirubin 3.7 H Direct Bilirubin 0.7 H Current Medications Generic Name Dose Route Start Last Admin Trade Name Freq PRN Reason Stop Dose Admin Albuterol/Ipratropium 1 amp 04/04/18 18:23 04/07/18 11:22 Duoneb - NEB 1 amp Q6H PRN Administration SHORTNESS OF BREATH Aspirin 81 mg 04/05/18 18:45 04/08/18 09:15 Ecotrin - PO 81 mg DAILY [facility] Administration Atorvastatin Calcium 40 mg 04/05/18 22:00 04/07/18 23:23 Lipitor - PO 40 mg HS [facility] Administration Carvedilol 25 mg 04/08/18 22:00 Coreg - PO BID [facility] Furosemide 40 mg 04/08/18 10:00 04/08/18 09:15 Lasix - PO 40 mg DAILY [facility] Administration Labetalol HCl 10 mg 04/04/18 16:54 04/06/18 08:41 Normodyne Injection - IVPUSH 10 mg Q4H-IV PRN Administration SBP >180, DBP >110 Lisinopril 40 mg 04/08/18 10:00 04/08/18 09:15 Prinivil PO 40 mg DAILY [facility] Administration Potassium Chloride 20 meq 04/06/18 22:00 04/08/18 09:15 K-Dur - PO 20 meq BID [facility] Administration OBJECTIVE:Impression: In absence of hemolysis , suspect Gilbert's disease - exacerbated by current stresses. Awaiting hemolytic workup. ASSESSMENT AND PLAN:
--- NOTE | 2018-04-08 19:12 | PN ---
Physical Exam: SUBJECTIVE: Patient seen and examined at bedside. Mother and brother present. Lengthy conversation about health issues, goals of care, discharge planning, outpatient followup. OBJECTIVE: Vital Signs Period Temp Pulse Resp BP Sys/Mix Pulse Ox Last 24 Hr 97.7 F-98.2 F 66-77 18-18 148-178/72-105 98 GENERAL: The patient is awake, alert, and fully oriented, in no acute distress. LUNGS: Breath sounds equal, clear to auscultation bilaterally, no wheezes, no crackles, no accessory muscle use. HEART: Regular rate and rhythm, S1, S2 ABDOMEN: Soft, nontender, nondistended EXTREMITIES: 2+ pulses, warm, well-perfused, no edema. NEUROLOGICAL: Cranial nerves II through XII grossly intact. Normal speech, moves all extremities freely. PSYCH: Tearful when discussing health problems, alcoholism SKIN: Warm, dry, normal turgor Laboratory Results - last 24 hr 04/07/18 04/08/18 04/08/18 05:30 05:30 05:30 WBC 6.1 RBC 4.61 Hgb 13.9 Hct 42.4 MCV 92.0 MCH 30.2 MCHC 32.8 RDW 17.0 H Plt Count 156 MPV 10.4 Absolute Neuts (auto) 3.9 Neutrophils % 64.5 Lymphocytes % 23.7 Monocytes % 5.9 Eosinophils % 4.6 H Basophils % 1.3 Nucleated RBC % 0 Haptoglobin 125 PT with INR INR Sodium 143 Potassium 4.1 Chloride 107 Carbon Dioxide 29 Anion Gap 7 L BUN 29 H Creatinine 1.2 Creat Clearance w eGFR > 60 Random Glucose 76 Calcium 8.8 Magnesium 2.2 Total Bilirubin 3.8 H Direct Bilirubin AST 17 ALT 27 Alkaline Phosphatase 89 Total Protein 6.7 Albumin 3.4 Direct Antiglob Test 04/08/18 04/08/18 04/08/18 05:30 05:30 05:30 WBC RBC Hgb Hct MCV MCH MCHC RDW Plt Count MPV Absolute Neuts (auto) Neutrophils % Lymphocytes % Monocytes % Eosinophils % Basophils % Nucleated RBC % Haptoglobin PT with INR 14.30 H INR 1.27 H Sodium Potassium Chloride Carbon Dioxide Anion Gap BUN Creatinine Creat Clearance w eGFR Random Glucose Calcium Magnesium Total Bilirubin 3.7 H Direct Bilirubin 0.7 H AST 16 ALT 26 Alkaline Phosphatase 87 Total Protein 6.7 Albumin 3.4 Direct Antiglob Test Negative Active Medications Generic Name Dose Route Start Last Admin Trade Name Riccardoq PRN Reason Stop Dose Admin Albuterol/Ipratropium 1 amp 04/04/18 18:23 04/07/18 11:22 Duoneb - NEB 1 amp Q6H PRN Administration SHORTNESS OF BREATH Aspirin 81 mg 04/05/18 18:45 04/08/18 09:15 Ecotrin - PO 81 mg DAILY [facility] Administration Atorvastatin Calcium 40 mg 04/05/18 22:00 04/07/18 23:23 Lipitor - PO 40 mg HS [facility] Administration Carvedilol 25 mg 04/08/18 22:00 Coreg - PO BID [facility] Furosemide 40 mg 04/08/18 10:00 04/08/18 09:15 Lasix - PO 40 mg DAILY [facility] Administration Labetalol HCl 10 mg 04/04/18 16:54 04/06/18 08:41 Normodyne Injection - IVPUSH 10 mg Q4H-IV PRN Administration SBP >180, DBP >110 Lisinopril 40 mg 04/08/18 10:00 04/08/18 09:15 Prinivil PO 40 mg DAILY [facility] Administration Potassium Chloride 20 meq 04/06/18 22:00 04/08/18 09:15 K-Dur - PO 20 meq BID [facility] Administration ASSESSMENT/PLAN 48 year-old male with a PMH significant for HTN, asthma, gout, and active ETOH abuse. Admitted for SOB. Now with newly diagnosed severe systolic heart failure. Severe systolic heart failure --04/04 Echo: LV severely reduced, EF 20-25%; RV normal; LAE; mild MR; mild TR ; mild PI --clinically improved, SOB has resolved, able to lay flat without distress --continue lasix PO 40mg daily, K-dur, lisinopril, carvedilol --continue ASA, statin --cardiology following; needs outpatient ischemic workup Hypertensive emergency --BP 205/129 on admission with severe heart failure --BP better controlled but still elevated --increase carvedilol 12.5 to 25mg BID --continue lisinopril Asthma --duonebs PRN Gout --presently stable --uric acid pending ETOH abuse --self-stopped about 30 days ago --no s/s of withdrawal --US liver with equivocal cirrhotic changes --interested in outpatient rehab; will have SW meet tomorrow Dispo: patient has f/u appointment with Dr. Toby Lin [facility], on at 1:30pm; will make appointment for primary care followup with [facility]; patient also considering Dr. Swan; continues to require inpatient care. Full code. Visit type - Emergency Visit Emergency Visit: Yes ED Registration Date: 04/04/18 Care time: The patient presented to the Emergency Department on the above date and was hospitalized for further evaluation of their emergent condition. - New Patient This patient is new to me today: Yes Date on this admission: 04/08/18 - Critical Care Critical Care patient: No
[2018-04-08] MEDS: CARVEDILOL 25 MG TABLET (FP) PO SCH (21:10)
[2018-04-08] MEDS: ATORVASTATIN CA 40 MG TABLET (FP) PO SCH (21:10)
[2018-04-09 06:19] LABS: BASO % 1.1 % (0-2.0); EOS % 4.4 % (0-4.5); HEMATOCRIT 39.8 % (35.4-49); HEMOGLOBIN 12.8 GM/dL (11.7-16.9); LYMPH % 25.6 % (8-40); MCH 29.7 pg (25.7-33.7); MCHC 32.2 g/dl (32.0-35.9); MEAN CELL VOLUME 92.1 fl (80-96); MEAN PLT VOLUME 10.8 fl (7.5-11.1); MONO % 7.4 % (3.8-10.2); NEUT % 61.5 % (42.8-82.8); PLATELET COUNT 158 K/MM3 (134-434); RBC 4.32 M/mm3 (4.00-5.60); RDW 16.9 % (11.9-15.9); WHITE BLOOD COUNT 5.6 K/mm3 (4.0-10.0)
[2018-04-09 06:48] LABS: ALBUMIN 3.2 g/dl (3.4-5.0); ALK PHOS 82 U/L (45-117); ANION GAP 6 MMOL/L (8-16); BILIRUBIN,TOTAL 2.6 mg/dL (0.2-1); BLOOD UREA NITROGEN 24 mg/dL (7-18); CALCIUM 8.5 mg/dL (8.5-10.1); CHLORIDE 108 mmol/L (98-107); CO2 29 mmol/L (21-32); CREATININE 1.2 mg/dL (0.55-1.3); GLUCOSE,RANDOM 76 mg/dL (74-106); MAGNESIUM 2.2 mg/dL (1.8-2.4); POTASSIUM 4.3 mmol/L (3.5-5.1); SGOT/AST 15 U/L (15-37); SGPT/ALT 24 U/L (13-61); SODIUM 143 mmol/L (136-145); TOT PROT 6.4 g/dl (6.4-8.2); URIC ACID 10.4 mg/dL (2.6-7.2)
[2018-04-09 08:09] LABS: HBSAG SCREEN Negative (Negative); HEP B CORE AB, TOT Negative (Negative)
[2018-04-09 10:21] VITALS: BP 172/92; PULSE 79; TEMP 98.1
[2018-04-09] MEDS: LISINOPRIL 20 MG TABLET (FP) PO SCH (10:22)
[2018-04-09] MEDS: ASPIRIN COATED 81 MG TABLET.EC PO SCH (10:22)
[2018-04-09] MEDS: POTASSIUM CHLORIDE TABS 20 MEQ TABLET.ER (FP) PO SCH (10:22)
[2018-04-09] MEDS: FUROSEMIDE 40 MG TABLET (FP) PO SCH (10:22)
[2018-04-09] MEDS: CARVEDILOL 25 MG TABLET (FP) PO SCH (10:22)
--- NOTE | 2018-04-09 10:37 | PN ---
Progress Note (short form) - Note Progress Note: cc: sob s: no sob, cp, palps, dizzy, edema tele: sinus, PVCs, NSVT Current Medications Albuterol/Ipratropium (Duoneb -) 1 amp NEB Q6H PRN PRN Reason: SHORTNESS OF BREATH Last Admin: 04/07/18 11:22 Dose: 1 amp Aspirin (Ecotrin -) 81 mg PO DAILY [facility] Last Admin: 04/08/18 09:15 Dose: 81 mg Atorvastatin Calcium (Lipitor -) 40 mg PO HS [facility] Last Admin: 04/07/18 23:23 Dose: 40 mg Carvedilol (Coreg -) 12.5 mg PO BID [facility] Last Admin: 04/08/18 09:14 Dose: 12.5 mg Furosemide (Lasix -) 40 mg PO DAILY [facility] Last Admin: 04/08/18 09:15 Dose: 40 mg Labetalol HCl (Normodyne Injection -) 10 mg IVPUSH Q4H-IV PRN PRN Reason: SBP >180, DBP >110 Last Admin: 04/06/18 08:41 Dose: 10 mg Lisinopril (Prinivil) 40 mg PO DAILY [facility] Last Admin: 04/08/18 09:15 Dose: 40 mg Potassium Chloride (K-Dur -) 20 meq PO BID [facility] Last Admin: 04/08/18 09:15 Dose: 20 meq Vital Signs Vital Signs Period Temp Pulse Resp BP Sys/Mix Pulse Ox Last 24 Hr 97.7 F-98.2 F 71-109 18-18 148-162/72-111 98 Constitutional: Yes: Well Nourished, No Distress Eyes: Yes: Conjunctiva Clear, EOM Intact HENT: Yes: Atraumatic, Normocephalic Neck: Yes: Supple, Trachea Midline Respiratory: Yes: Regular, CTA Bilaterally Gastrointestinal: Yes: Normal Bowel Sounds, Soft Renal/: Yes: WNL Cardiovascular: Yes: Regular Rate and Rhythm JVD: Yes Carotid Bruit: No Heart Sounds: Yes: S1, S2 Edema: No Peripheral Pulses WNL: Yes Peripheral Pulses: 2+ Left Doralis Pedis, 2+ Right Dorsalis Pedis Integumentary: Yes: WNL Neurological: Yes: Alert, Oriented Psychiatric: Yes: Alert, Oriented Assessment/Plan echo 03/2018 EF 25-30%, LV function severely reduced, mod LA dilation, mild MR, mild TR EKG sinus, LVH, nonspecific T wave changes, LA enlargement CXR: c/w congestion 48M h/o HTN, gout, noncompliant with meds/doctors visits p/w dyspnea on exertion , orthopnea, new cardiomyopathy, HTN, acute HF exacerbation Cardiomyopathy, acute systolic HF exacerbation - no prior cardiac history - likely etiology is uncontrolled HTN, will defer ischemic workup as outpatient - patient also now endorsing history of alcohol intake, several drinks a day, advised to stop drinking alcohol - started carvedilol, lisinopril; uptitrating - patient appears euvolemic not short of breath after receiving IV lasix 40 mg BID, now on PO - continue lasix 40 mg PO daily, lisinopril 40 mg daily, coreg 25 mg BID - start spironolactone 12.5 mg daily - stopped potassium supplement, no longer on IV diuretics and on spironolactone and lisinopril now, will check labs at visit next week - discussed daily weights, low salt diet. advised to call the clinic if weight gain >3 lbs, short of breath, edema develops - no further cardiac workup as inpatient, follow up in clinic in one week, appointment provided to patient - stable for discharge from cardiac perspective [facility] - needs formal sleep study, Dr. Rushing following - discussed with patient importance of screening/treatment in setting of HTN, cardiomyopathy elevated bilirubin - eval by heme, GI - advised to stop EtOH HTN - baseline BP 180s-190s/100s-110s per patient and family member, he was not taking medications as prescribed at home - on lisinopril and carvedilol as above - PRN labetalol for BP >190/110 - given high baseline will avoid aggressive lowering of BP to avoid cerebral hypoperfusion - improving HLD - lipid panel reviewed, LDL 125, HDL 23 - start atorvastatin 40 mg daily Gout - manage per primary
--- NOTE | 2018-04-09 11:02 | PN ---
Progress Note, Physician History of Present Illness: pulmonary alert,no distress,-sob,-cp - Current Medication List Current Medications: Active Medications Albuterol/Ipratropium (Duoneb -) 1 amp NEB Q6H PRN PRN Reason: SHORTNESS OF BREATH Last Admin: 04/07/18 11:22 Dose: 1 amp Aspirin (Ecotrin -) 81 mg PO DAILY [facility] Last Admin: 04/09/18 10:22 Dose: 81 mg Atorvastatin Calcium (Lipitor -) 40 mg PO HS [facility] Last Admin: 04/08/18 21:10 Dose: 40 mg Carvedilol (Coreg -) 25 mg PO BID [facility] Last Admin: 04/09/18 10:22 Dose: 25 mg Furosemide (Lasix -) 40 mg PO DAILY [facility] Last Admin: 04/09/18 10:22 Dose: 40 mg Labetalol HCl (Normodyne Injection -) 10 mg IVPUSH Q4H-IV PRN PRN Reason: SBP >180, DBP >110 Last Admin: 04/06/18 08:41 Dose: 10 mg Lisinopril (Prinivil) 40 mg PO DAILY [facility] Last Admin: 04/09/18 10:22 Dose: 40 mg Spironolactone (Aldactone -) 12.5 mg PO DAILY [facility] - Objective Vital Signs: Vital Signs Temperature 98.1 F 04/09/18 10:00 Pulse Rate 79 04/09/18 10:00 Respiratory Rate 18 04/09/18 10:00 Blood Pressure 172/92 H 04/09/18 10:00 O2 Sat by Pulse Oximetry (%) 98 04/08/18 09:00 Constitutional: Yes: Well Nourished, Calm Eyes: Yes: WNL HENT: Yes: WNL Neck: Yes: WNL Cardiovascular: Yes: Regular Rate and Rhythm, S1, S2 Respiratory: Yes: Diminished Gastrointestinal: Yes: Normal Bowel Sounds, Soft Extremities: Yes: WNL Edema: No Labs: CBC, BMP 04/09/18 05:30 04/09/18 05:30 Problem List - Problems (1) Hypertensive urgency Code(s): I16.0 - HYPERTENSIVE URGENCY (2) CHF (congestive heart failure) Code(s): I50.9 - HEART FAILURE, UNSPECIFIED (3) Cardiomyopathy Code(s): I42.9 - CARDIOMYOPATHY, UNSPECIFIED (4) Systolic CHF, acute Code(s): I50.21 - ACUTE SYSTOLIC (CONGESTIVE) HEART FAILURE (5) Elevated bilirubin Code(s): R17 - UNSPECIFIED JAUNDICE (6) Obesities, morbid Code(s): E66.01 - MORBID (SEVERE) OBESITY DUE TO EXCESS CALORIES (7) Dyspnea Code(s): R06.00 - DYSPNEA, UNSPECIFIED Assessment/Plan IMP ACUTE SYSTOLIC CHF improving CARDIOMYOPATHY HYPERTENSIVE URGENCY GOUT H/O ASTHMA SEVERE OSAS ON SLEEP SCREEN ELEVATED BILIRUBIN PLAN LASIX TITRATE BP MEDS DAILY WTS F/U CHEST X-RAY today FORMAL SLEEP STUDIES OUTPATIENT DR MURRAY Problem List - Problems (1) Hypertensive urgency Code(s): I16.0 - HYPERTENSIVE URGENCY (2) CHF (congestive heart failure) Code(s): I50.9 - HEART FAILURE, UNSPECIFIED (3) Cardiomyopathy Code(s): I42.9 - CARDIOMYOPATHY, UNSPECIFIED (4) Systolic CHF, acute Code(s): I50.21 - ACUTE SYSTOLIC (CONGESTIVE) HEART FAILURE (5) Elevated bilirubin Code(s): R17 - UNSPECIFIED JAUNDICE (6) Obesities, morbid Code(s): E66.01 - MORBID (SEVERE) OBESITY DUE TO EXCESS CALORIES (7) Dyspnea Code(s): R06.00 - DYSPNEA, UNSPECIFIED
--- NOTE | 2018-04-09 12:59 | DS ---
Physical Exam: SUBJECTIVE: Patient seen and examined OBJECTIVE: Vital Signs Period Temp Pulse Resp BP Sys/Mix Pulse Ox Last 24 Hr 98.0 F-98.8 F 65-79 18-18 146-174/70-110 PHYSICAL EXAM GENERAL: The patient is awake, alert, and fully oriented, in no acute distress. HEAD: Normal with no signs of trauma. EYES: PERRL, extraocular movements intact, sclera anicteric, conjunctiva clear. ENT: Ears normal, nares patent, oropharynx clear without exudates, moist mucous membranes. NECK: Trachea midline, full range of motion, supple. LUNGS: Breath sounds equal, clear to auscultation bilaterally, no wheezes, no crackles, no accessory muscle use. HEART: Regular rate and rhythm, S1, S2 without murmur, rub or gallop. ABDOMEN: Soft, nontender, nondistended, normoactive bowel sounds, no guarding, no rebound, no hepatosplenomegaly, no masses. EXTREMITIES: 2+ pulses, warm, well-perfused, no edema. NEUROLOGICAL: Cranial nerves II through XII grossly intact. Normal speech, gait not observed. PSYCH: Normal mood, normal affect. SKIN: Warm, dry, normal turgor, no rashes or lesions noted. LABS Laboratory Results - last 24 hr 04/08/18 04/08/18 04/09/18 05:30 05:30 05:30 WBC 5.6 RBC 4.32 Hgb 12.8 Hct 39.8 MCV 92.1 MCH 29.7 MCHC 32.2 RDW 16.9 H Plt Count 158 MPV 10.8 Absolute Neuts (auto) 3.4 Neutrophils % 61.5 Lymphocytes % 25.6 Monocytes % 7.4 Eosinophils % 4.4 Basophils % 1.1 Nucleated RBC % 0 Haptoglobin 136 Sodium Potassium Chloride Carbon Dioxide Anion Gap BUN Creatinine Creat Clearance w eGFR Random Glucose Uric Acid Calcium Magnesium Total Bilirubin AST ALT Alkaline Phosphatase Total Protein Albumin Hepatitis A Ab Total Negative Hep Bs Antigen Negative Hep Bs Antibody Non reactive Hep B Core Total Ab Negative Hep C Ab Diagnostic <0.1 Liver Fibrosis Interp 04/09/18 05:30 WBC RBC Hgb Hct MCV MCH MCHC RDW Plt Count MPV Absolute Neuts (auto) Neutrophils % Lymphocytes % Monocytes % Eosinophils % Basophils % Nucleated RBC % Haptoglobin Sodium 143 Potassium 4.3 Chloride 108 H Carbon Dioxide 29 Anion Gap 6 L BUN 24 H Creatinine 1.2 Creat Clearance w eGFR > 60 Random Glucose 76 Uric Acid 10.4 H Calcium 8.5 Magnesium 2.2 Total Bilirubin 2.6 H AST 15 ALT 24 Alkaline Phosphatase 82 Total Protein 6.4 Albumin 3.2 L Hepatitis A Ab Total Hep Bs Antigen Hep Bs Antibody Hep B Core Total Ab Hep C Ab Diagnostic Liver Fibrosis [facility] HOSPITAL COURSE: Date of Admission:04/04/18 Date of Discharge: 04/09/18 Discharge Summary Reason For Visit: CONGESTIVE HEART FAILURE Current Active Problems CHF (congestive heart failure) (Acute) Cardiomyopathy (Acute) Dyspnea (Acute) Elevated bilirubin (Acute) Hypertensive urgency (Acute) Indirect hyperbilirubinemia (Acute) Obesities, morbid (Acute) Systolic CHF, acute (Acute) Condition: Improved - Instructions Diet, Activity, Other Instructions: It is very important you follow up with the following providers: Dr. Oropeza - primary care provider - April 14, 10:30am; [address] [facility]; [phone] Dr. Ethan Lin - repair electric motor assembler - April 29, 1:30pm; [address] [place] [address]; [phone] Referrals: Ethan Lin MD [Staff Physician] - 04/29/18 1:30 pm Norman Oropeza MD [Staff Physician] - Disposition: HOME - Home Medications Comprehensive Discharge Medication List: Ambulatory Orders Amlodipine Besylate 10 mg PO DAILY #30 tablet 04/09/18 Aspirin Coated [Ecotrin -] 81 mg PO DAILY #30 tablet.ec 04/09/18 Atorvastatin Ca [Lipitor] 40 mg PO HS #30 tablet 04/09/18 Carvedilol [Coreg -] 25 mg PO BID #60 tablet 04/09/18 Furosemide [Lasix -] 40 mg PO DAILY #30 tablet 04/09/18 Lisinopril [Prinivil] 40 mg PO DAILY #30 tablet 04/09/18 Potassium Chloride [K-Dur -] 20 meq PO BID #30 tablet.er 04/09/18 - Discharge Referral Referred to [facility] Med [facility] No
[2018-04-10] MEDS ORDERED: SPIRONOLACTONE 25 MG TABLET (FP) PO SCH (10:00)
== END 2018-04-09 13:47 | disposition home or self-care (01) | DRG 304 ==
LOC: JER 12:05 → JERBED 15:33 → J4W 17:20
PROVIDERS: ADMIT Internal Medicine; ATTEND Nurse Practitioner Acute Care
DX: I16.0 Hypertensive urgency (principal); I50.21 Acute systolic (congestive) heart failure; Z68.41 Body mass index [BMI] 40.0-44.9, adult; I47.1 Supraventricular tachycardia; I42.9 Cardiomyopathy, unspecified; I11.0 Hypertensive heart disease with heart failure; E66.01 Morbid (severe) obesity due to excess calories; M10.9 Gout, unspecified; G47.33 Obstructive sleep apnea (adult) (pediatric); E78.5 Hyperlipidemia, unspecified; J45.909 Unspecified asthma, uncomplicated; F10.10 Alcohol abuse, uncomplicated; E80.6 Other disorders of bilirubin metabolism; Z91.14 Patient's other noncompliance with medication regimen
CPT/HCPCS: 36415; 71046-TC-FY; 76705-TC; 80053; 80061; 80076; 81003; 81015; 82248; 82550; 82728; 82803; 83010; 83036; 83540; 83550; 83605; 83615; 83721; 83735; 83880; 84443; 84484; 84550; 85025; 85610; 86704; 86706; 86708; 86803; 86880; 87086; 87340; 93005; 93010; 93306-TC; 94640; 94761; 99285-25; J7620